=== PATIENT | male | born 1975 | race American Indian/Alaskan Native ===

== ENCOUNTER 2019-02-04 09:33 | Emergency (ER) | payer MEDICARE ==
[2019-02-04 09:49] VITALS: BP 117/73
--- NOTE | 2019-02-04 10:48 | Emergency Department Report ---
Chief Complaint: Medical Clearance Stated Complaint: LEVELS CHECKED/POSS DIABETIC Time Seen by Provider: 02/04/19 10:43 - HPI History of Present Illness: 44-year-old -[place] male with a history of paranoid schizophrenia comes in today stating he is here to get his Depakote levels checked. Patient states that he is followed by Frances ramirez. Patient reports he last took his Depakote which is 500 mg morning. Patient has missed 2 doses of Depakote. Patient denies any suicidal or homicidal ideations. Patient denies any hallucination. - Exam Vital Signs: Vital Signs 02/04/19 09:46 Temperature 97.9 F Pulse Rate 93 H Respiratory 18 Rate Blood Pressure 117/73 O2 Sat by Pulse 96 Oximetry Physical Exam: Patient is alert and oriented 3 patient does not appear intoxicated or sedated. Patient is playing on his cell phone MSE screening note: Focused history and physical exam performed. Due to findings the following was ordered: Patient discussed with doctor:: ELEUTERIO WHITAKER ED Disposition for MSE Disposition: MED SCREENING EXAM-LEFT Is pt being admited?: No Does the pt Need Aspirin: No Condition: Stable Referrals: [facility] [Provider Group] - 3-5 Days
== END 2019-02-04 11:08 | disposition left against medical advice (07) ==
LOC: ED 09:33
DX: F20.0 Paranoid schizophrenia (principal); Z88.0 Allergy status to penicillin; Z88.2 Allergy status to sulfonamides
CPT/HCPCS: 82962; 99282

== ENCOUNTER 2019-05-19 07:44 | Emergency (ER) | payer MEDICARE ==
[2019-05-19 07:50] VITALS: BP 134/80
--- NOTE | 2019-05-19 10:59 | Emergency Department Report ---
Chief Complaint: Headache Stated Complaint: DIZZY,NOSEBLEEDS Time Seen by Provider: 05/19/19 10:19 - HPI History of Present Illness: This is a 44-year-old male who presents to the ED complaining of headache and dizziness 1-1/2 years. Patient states that he is history of headache and sinus problems for the past 2 years. Patient states that he has intermittent headaches. Patient states that he is not having a evaluated because he was scared. Patient denies any trauma or injuries to the head. Patient denies any neck pain, fever, chills, nausea vomiting chest pain blurry vision - ROS Review of Systems: As noted in HPI. - Exam Vital Signs: Vital Signs 05/19/19 07:49 Temperature 97.4 F L Pulse Rate 82 Respiratory 18 Rate Blood Pressure 134/80 O2 Sat by Pulse 99 Oximetry Physical Exam: She is alert and oriented 3 . Ambulatory without any problems. Patient had no neurological deficit., Head was nontraumatic, my serious sinuses intact Nontender MSE screening note: Focused history and physical exam performed. Due to findings the following was ordered: ED Medical Decision Making - Medical Decision Making 44-year-old male presents to the ED for chronic headache. PATIENT DENIES ANY OTHER PROBLEMS. PATIENT DOES NOT HAVE A MEDICAL EMERGENCY AT THIS TIME. PATIENT WAS DISCHARGED AND SENT TO DR. BURRELL USE OFFICE. DISCUSSED THE PATIENT ALSO TO FOLLOW UP WITH NEUROLOGIST KYM. ED Disposition for MSE Clinical Impression: Headache, Chronic headache Disposition: Z-07 MED SCREENING EXAM-LEFT Is pt being admited?: No Does the pt Need Aspirin: No Condition: Stable Instructions: Allergic Rhinitis (ED), Tension Headache (ED) Additional Instructions: Make sure to follow up with the primary care physician as discussed. Take all your medications as you've been prescribed by your doctor. If you have any worsening symptoms or develop new symptoms please return to ED immediately. Referrals: LEYDI ROLDAN MD [Staff Physician] - 3-5 Days [facility] [Provider Group] - 3-5 Days Forms: Work/School Release Form(ED) Time of Disposition: 10:58
== END 2019-05-19 11:09 | disposition left against medical advice (07) ==
LOC: ED 07:44
DX: R51 Headache (principal); R42 Dizziness and giddiness
CPT/HCPCS: 99282

== ENCOUNTER 2020-04-07 17:31 | Emergency (ER) | payer MEDICARE ==
[2020-04-07 18:16] VITALS: BP 148/86
--- NOTE | 2020-04-07 18:17 | Event Note ---
ED Screening Note Date of service: 04/07/20 Time: 18:16 ED Screening Note: Patient complains of feeling faint x2 weeks and also wanting blood sugar level and Depakote level checked Denies headache, shortness of breath, or chest pain This initial assessment/diagnostic orders/clinical plan/treatment(s) is/are subject to change based on patients health status, clinical progression and re- assessment by fellow clinical providers in the ED. Further treatment and workup at subsequent clinical providers discretion. Patient/guardian urged not to elope from the ED as their condition may be serious if not clinically assessed and managed. Initial orders include: labs ekg
[2020-04-07 19:28] LABS: Basophils % (Auto) 0.5 % (0.0-1.8); Eosinophils # (Auto) 0.1 K/mm3 (0.0-0.4); Eosinophils % (Auto) 1.2 % (0.0-4.3); Hemoglobin 15.4 gm/dl (11.8-15.2); Lymphocytes % (Auto) 45.1 % (13.4-35.0); Mean Corpuscular HGB Conc 34 % (32-34); Mean Corpuscular Volume 81 fl (84-94); Monocytes % (Auto) 11.9 % (0.0-7.3); Platelet Count 232 K/mm3 (140-440); Red Blood Count 5.58 M/mm3 (3.65-5.03); Red Cell Distribution Width 16.7 % (13.2-15.2)
[2020-04-07 19:53] LABS: Alanine Aminotransferase 8 units/L (7-56); Albumin 4.5 g/dL (3.9-5); BUN/Creatinine Ratio 11; Blood Urea Nitrogen 9 mg/dL (9-20); Calcium 9.6 mg/dL (8.4-10.2); Hemolysis Index 10
--- NOTE | 2020-04-08 01:48 | Emergency Department Report ---
ED General Adult HPI - General Chief complaint: Medical Clearance Stated complaint: PAIN HANDS/FEET/SUGAR LEVEL Time Seen by Provider: 04/07/20 18:16 Source: patient Mode of arrival: Ambulatory Limitations: No Limitations - History of Present Illness Initial comments: Patient is a 45-year-old -Bangladeshi male with a history of paranoid schizophrenia and chronic eczema who presents to the ED with complaint of acute onset persistent intermittent bilateral ankle and hand pain with itchy erythematous dry scaly rashes on the hands and ankles. Patient states that the pain is worse with ambulation or at rest. Patient denies dizziness, fever, chills, nausea, vomiting, traumatic injury, heavy lifting, chest pain or shortness of breath, change in vision, abdominal pain, back pain or numbness and tingling of upper and lower extremities bilaterally. MD Complaint: Bilateral ankle and hand pain; itchy irritated rashes -: Gradual, month(s) (2) Location: upper extremity (Bilateral hands), lower extremity (bilateral ankles) Radiation: non-radiation Severity scale (0 -10): 7 Quality: burning, aching, sharp Consistency: constant Improves with: none Worsens with: none Associated Symptoms: denies other symptoms, rash (Irritated itchy burning painful rashes on the hands and the ankle). denies: confusion, chest pain, cough, diaphoresis, headaches, loss of appetite, malaise, nausea/vomiting, seizure, shortness of breath, syncope, weakness, other Treatments Prior to Arrival: none - Related Data Previous Rx's Medication Instructions Recorded Last Taken Type Ibuprofen [Motrin] 600 mg PO Q8H PRN #30 tablet 04/08/20 Unknown Rx Triamcinolone Acetonide 1 applic TP BID #1 tube 04/08/20 Unknown Rx [Triamcinolone Acetonide Oint 0.5%] predniSONE [Deltasone] 40 mg PO QDAY #10 tab 04/08/20 Unknown Rx Allergies Allergy/AdvReac Type Severity Reaction Status Date / Time Penicillins Allergy Anaphylaxis Verified 05/19/19 07:47 sulfabenzamide Allergy Anaphylaxis Verified 05/19/19 07:47 ED Review of Systems ROS: Stated complaint: PAIN HANDS/FEET/SUGAR LEVEL Other details as noted in HPI Constitutional: denies: chills, fever Eyes: denies: eye pain, eye discharge, vision change ENT: denies: ear pain, throat pain Respiratory: denies: cough, shortness of breath, wheezing Cardiovascular: denies: chest pain, palpitations Endocrine: no symptoms reported Gastrointestinal: denies: abdominal pain, nausea, diarrhea Genitourinary: denies: urgency, dysuria Musculoskeletal: arthralgia (Bilateral hands and ankles), other (Itchy erythematous dry rashes on ankles and ahnds). denies: back pain, joint swelling Skin: rash (Mildy erythematous itchy rashes on ankles and hands), change in color, pruritus. denies: lesions Neurological: denies: headache, weakness, paresthesias Psychiatric: denies: anxiety, depression Hematological/Lymphatic: denies: easy bleeding, easy bruising ED Past Medical Hx - Past Medical History Previous Medical History?: Yes Hx Psychiatric Treatment: Yes (paranoid schizophrenia) Additional medical history: PVD. ezcema - Surgical History Past Surgical History?: Yes Additional Surgical History: stents in legs - Social History Smoking Status: Current Every Day Smoker Substance Use Type: None - Medications Home Medications: Home Medications Medication Instructions Recorded Confirmed Last Taken Type Ibuprofen [Motrin] 600 mg PO Q8H PRN #30 tablet 04/08/20 Unknown Rx Triamcinolone Acetonide 1 applic TP BID #1 tube 04/08/20 Unknown Rx [Triamcinolone Acetonide Oint 0.5%] predniSONE [Deltasone] 40 mg PO QDAY #10 tab 04/08/20 Unknown Rx ED Physical Exam - General Limitations: No Limitations General appearance: alert, in no apparent distress - Head Head exam: Present: atraumatic, normocephalic, normal inspection - Eye Eye exam: Present: normal appearance, PERRL, EOMI Pupils: Present: normal accommodation - ENT ENT exam: Present: normal exam, normal orophraynx, mucous membranes moist, TM's normal bilaterally, normal external ear exam - Neck Neck exam: Present: normal inspection, full ROM - Respiratory Respiratory exam: Present: normal lung sounds bilaterally. Absent: respiratory distress, wheezes, rales, rhonchi, stridor, chest wall tenderness, accessory mus mitzi use - Cardiovascular Cardiovascular Exam: Present: regular rate, normal rhythm, normal heart sounds. Absent: systolic murmur, diastolic murmur, rubs, gallop - GI/Abdominal GI/Abdominal exam: Present: soft, normal bowel sounds. Absent: tenderness, guarding, rebound, hyperactive bowel sounds, hypoactive bowel sounds, organomegaly, mass - Extremities Exam Extremities exam: Present: normal inspection, full ROM, tenderness (Palpable bilateral ankle and hand joint tenderness), normal capillary refill. Absent: joint swelling, calf tenderness - Back Exam Back exam: Present: normal inspection, full ROM. Absent: tenderness, CVA tenderness (R), CVA tenderness (L), muscle spasm, paraspinal tenderness, vertebral tenderness - Neurological Exam Neurological exam: Present: alert, oriented X3, CN II-XII intact, normal gait, reflexes normal - Psychiatric Psychiatric exam: Present: normal affect, normal mood - Skin Skin exam: Present: warm, dry, intact, normal color, rash (Mildly erythematous dry irritated rashes on ankles and hands bilaterally) ED Course Vital Signs 04/07/20 18:14 Temperature 98.5 F Pulse Rate 89 Respiratory 16 Rate Blood Pressure 148/86 [Right] O2 Sat by Pulse 100 Oximetry ED Medical Decision Making - Lab Data Result diagrams: 04/07/20 18:46 04/07/20 18:46 - Medical Decision Making This is a 45-year-old -Bangl[place] male with a history of bipolar type I disorder and chronic eczema who presents to the ED with complaint of acute onset persistent intermittent bilateral ankle and hand pain with itchy erythematous dry scaly rashes on the hands and ankles. Patient states that the pain is worse with ambulation or at rest. In the ED, patient is alert and oriented x3 and is not in distress. Lab test results were reviewed and are all nonactionable. Patient was treated for pain in the ED and was discharged home on medications and advised to follow-up with his primary care physician in 7 to 10 days for reevaluation. Patient was advised to return to the ED immediately if symptoms get worse. - Differential Diagnosis Tendonitis; Osteoarthritis; Muscle strain; muscle spasm Critical care attestation.: If time is entered above; I have spent that time in minutes in the direct care of this critically ill patient, excluding procedure time. ED Disposition Clinical Impression: Tendinitis of both ankles, Chronic eczema Muscle strain of hand Qualifiers: Encounter type: initial encounter Laterality: unspecified laterality Qualified Code(s): S66.919A - Strain of unspecified muscle, fascia and tendon at wrist and hand level, unspecified hand, initial encounter Disposition: TO HOME OR SELFCARE Is pt being admited?: No Does the pt Need Aspirin: No Condition: Stable Instructions: Eczema, Muscle Strain, Ymrr-[id number]-Lweg, Posterior Tibial Tendinitis Rehab[facility] Additional Instructions: Take medications with food, drink plenty of fluids and follow up with your Primary care Physician in 7-10 days for reevaluation. Return to the ED immediately if symptoms get worse Prescriptions: predniSONE [Deltasone] 40 mg PO QDAY #10 tab Ibuprofen [Motrin] 600 mg PO Q8H PRN #30 tablet PRN Reason: Pain Triamcinolone Acetonide [Triamcinolone Acetonide Oint 0.5%] 1 applic TP BID #1 tube Referrals: [facility] [Provider Group] - 3-5 Days Time of Disposition: 01:56 Print Language: DOMINICAN
[2020-04-08] MEDS ORDERED: IBUPROFEN 600 MG TAB PO ONE (02:03)
[2020-04-08] MEDS ORDERED: predniSONE 20 MG TAB PO ONE (02:03)
[2020-04-08] MEDS ORDERED: ACETAMINOPHEN 500 MG TAB PO ONE (02:03)
== END 2020-04-08 02:13 | disposition home or self-care (01) ==
LOC: ED 17:31
DX: S66.919A Strain of unspecified muscle, fascia and tendon at wrist and hand level, unspecified hand, initial encounter (principal); M77.52 Other enthesopathy of left foot and ankle; M77.51 Other enthesopathy of right foot and ankle; L30.9 Dermatitis, unspecified; F20.0 Paranoid schizophrenia; F17.200 Nicotine dependence, unspecified, uncomplicated; Z98.890 Other specified postprocedural states; Z79.1 Long term (current) use of non-steroidal anti-inflammatories (NSAID); Z79.899 Other long term (current) drug therapy; Z88.0 Allergy status to penicillin; Z88.8 Allergy status to other drugs, medicaments and biological substances; X58.XXXA Exposure to other specified factors, initial encounter; Y93.89 Activity, other specified; Y92.89 Other specified places as the place of occurrence of the external cause; Y99.8 Other external cause status
CPT/HCPCS: 36415; 80053; 84484; 85025

== ENCOUNTER 2020-08-19 14:41 | Emergency (ER) | payer MEDICARE ==
--- NOTE | 2020-08-19 15:47 | Emergency Department Report ---
ED General Adult HPI - General Chief complaint: Skin Rash Stated complaint: RASH/ALL OVER Time Seen by Provider: 08/19/20 15:41 Source: patient Mode of arrival: Ambulatory Limitations: No Limitations - History of Present Illness Initial comments: 45 y/o male pt w/ hx of schizophrenia and eczema presents emergency department with complaints of diffuse pruritic rash for 1 month. Patient states he was released from [facility] last week, where he did not receive any of his steroids or topical medications. He does not currently have plans to see a partition setter. States current symptoms are consistent with prior eczema flares. Denies fever, chills, chest pain, shortness of breath, vomiting, diarrhea, abnormal bleeding/bruising, syncope, neck stiffness, suicidal/homicidal ideations. Denies all other complaints at this time. - Related Data Previous Rx's Medication Instructions Recorded Last Taken Type Ibuprofen [Motrin] 600 mg PO Q8H PRN #30 tablet 04/08/20 Unknown Rx Triamcinolone Acetonide 1 applic TP BID #1 tube 04/08/20 Unknown Rx [Triamcinolone Acetonide Oint 0.5%] predniSONE [Deltasone] 40 mg PO QDAY #10 tab 04/08/20 Unknown Rx Crisaborole [Eucrisa] 60 gm TP BID #1 tube 08/19/20 Unknown Rx predniSONE [Deltasone] 20 mg PO QDAY 10 Days tab 08/19/20 Unknown Rx Allergies Allergy/AdvReac Type Severity Reaction Status Date / Time Penicillins Allergy Anaphylaxis Verified 05/19/19 07:47 sulfabenzamide Allergy Anaphylaxis Verified 05/19/19 07:47 ED Review of Systems ROS: Stated complaint: RASH/ALL OVER Other details as noted in HPI Other: GENERAL: Negative for fever, chills, weight change, anorexia, fatigue. ENT: Negative for ear pain, difficulty hearing, sore throat, nasal congestion, epistaxis. CARDIOVASCULAR: Negative for chest pain, palpitations, lower extremity swelling. PULMONARY: Negative for cough, dyspnea, wheezing, orthopnea, cyanosis. GASTROINTESTINAL: Negative for abdominal pain, nausea, vomiting, diarrhea, constipation. MUSCULOSKELETAL: Negative for joint pain, joint swelling, myalgias, back pain, neck pain. NEUROLOGICAL: Negative for headache, seizure, syncope, paresthesias, weakness. INTEGUMENTARY: Positive for rash. HEMATOLOGICAL: Negative for hemoptysis, hematemesis, hematochezia, hematuria. PSYCHIATRIC: Negative for hallucinations, suicidal ideation, homicidal ideation, anxiety, depression. ED Past Medical Hx - Past Medical History Previous Medical History?: Yes Hx Psychiatric Treatment: Yes (paranoid schizophrenia) Additional medical history: PVD. ezcema - Surgical History Past Surgical History?: Yes Additional Surgical History: stents in legs - Social History Smoking Status: Current Every Day Smoker Substance Use Type: None - Medications Home Medications: Home Medications Medication Instructions Recorded Confirmed Last Taken Type Ibuprofen [Motrin] 600 mg PO Q8H PRN #30 tablet 04/08/20 Unknown Rx Triamcinolone Acetonide 1 applic TP BID #1 tube 04/08/20 Unknown Rx [Triamcinolone Acetonide Oint 0.5%] predniSONE [Deltasone] 40 mg PO QDAY #10 tab 04/08/20 Unknown Rx Crisaborole [Eucrisa] 60 gm TP BID #1 tube 08/19/20 Unknown Rx predniSONE [Deltasone] 20 mg PO QDAY 10 Days tab 08/19/20 Unknown Rx ED Physical Exam - General Limitations: No Limitations - Other Other exam information: General: Awake, appropriately interactive, no acute distress. Neck: Supple. Full range of motion intact. Cardiovascular: Normal peripheral perfusion. Pulmonary: No respiratory distress. Patient is speaking normally without use of accessory muscles. Skin: Dry scaly pruritic rash throughout the trunk and extremities. No evidence of secondary bacterial infection. Neurological: No facial asymmetry. Speech is clear. Follows commands. Patient is alert and oriented. Musculoskeletal: Moves all four extremities spontaneously with normal range of motion. Psych: Cooperative. Appropriate mood and affect. ED Course Vital Signs 08/19/20 15:34 Temperature 98.7 F Pulse Rate 89 Respiratory 20 Rate Blood Pressure 111/75 O2 Sat by Pulse 98 Oximetry ED Medical Decision Making - Medical Decision Making Differential diagnosis including but not limited to: eczema, psoriasis, allergic reaction, tinea corporis, cellulitis, Smith-Jacek syndrome, toxic epidermal necrolysis Patient with history of eczema presents to the emergency department with complaints of a diffuse pruritic rash, consistent with prior eczema flareups. The patient is alert and well appearing. There are no petichiae or purpura, no mucous membrane lesions, and no bullae. No evidence of secondary bacterial infection. The patient is without findings concerning for worrisome systemic illness requiring further treatment, additional testing, admission, or specialist consultation at this time. History and exam findings suggestive of eczema. Patient will be discharged home with steroids and topical medications. Additional testing is not indicated at this time, but should be considered if symptoms worsen or recur. Discussed findings, presumptive diagnosis, need for follow-up and specific signs/symptoms that should prompt immediate return to the emergency department. Instructions were explained in detail to the patient in addition to giving written discharge information. Patient expressed understanding and was given the opportunity to ask questions, all of which were satisfactorily answered prior to discharge home. Critical care attestation.: If time is entered above; I have spent that time in minutes in the direct care of this critically ill patient, excluding procedure time. ED Disposition Clinical Impression: Rash and nonspecific skin eruption, History of eczema Disposition: TO HOME OR SELFCARE Is pt being admited?: No Does the pt Need Aspirin: No Condition: Stable Instructions: Rash, Adult, [id number] Additional Instructions: Take Prednisone with food as directed. Use Eucrisa twice daily as directed. Continue applying Vaseline daily. Keep skin well hydrated. Follow-up with primary care provider this week. Call tomorrow to schedule appointment. Follow-up with your partition setter as soon as possible. Call tomorrow to schedule appointment. Return to the emergency department immediately for new or worsening symptoms. Prescriptions: predniSONE [Deltasone] 20 mg PO QDAY 10 Days tab Crisaborole [Eucrisa] 60 gm TP BID #1 tube Referrals: LUH BURRELL MD [Staff Physician] - 3-5 Days PRAVEENA DUNLAP MD [Staff Physician] - 3-5 Days Time of Disposition: 15:54
[2020-08-19 15:49] VITALS: BP 111/75
== END 2020-08-19 16:54 | disposition home or self-care (01) ==
LOC: ED 14:41
DX: R21 Rash and other nonspecific skin eruption (principal); L30.9 Dermatitis, unspecified; F20.0 Paranoid schizophrenia; F17.200 Nicotine dependence, unspecified, uncomplicated; Z98.890 Other specified postprocedural states; Z79.1 Long term (current) use of non-steroidal anti-inflammatories (NSAID); Z79.899 Other long term (current) drug therapy; Z88.0 Allergy status to penicillin; Z88.8 Allergy status to other drugs, medicaments and biological substances
CPT/HCPCS: 99282

== ENCOUNTER 2020-10-02 16:15 | Inpatient (IN) | payer MEDICARE ==
[2020-10-02] MEDS ORDERED: MELATONIN 5 MG TAB PO PRN (21:51)
[2020-10-03] MEDS: traZODone 50 MG TAB PO SCH ×2 (03:45→21:42)
[2020-10-03] MEDS ORDERED: DIVALPROEX DR 125 MG TAB PO SCH ×2 (10:00→22:00)
[2020-10-03] MEDS: TRIAMCINOLONE 0.5% CREAM 15 GM TP SCH ×2 (10:04→21:42)
--- NOTE | 2020-10-03 11:02 | History and Physical Report ---
GP History & Physical - History of Present Illness Date of admission: 10/02/20 Date of Examination: 10/03/20 Reason for Admission: Danger to self, Failure of Outpatient Treatment, Severe anxiety/depression History of Present Illness: Donnie Rachel is a 45y/o male patient whom I first evaluated in the ER and at that time had cleared the patient. When the clinical academic allergist went to discharge the patient and discussed the safety plan with the patient he stated that his suicidal thoughts had returned. At that time time I informed the clinical academic allergist that I would be changing the patient's disposition to inpatient. During my evaluation of the patient today he is in his room with the linen over his head. I pull it down to see him. He is smiling but says he feels "withdrawn." I asked why he wasn't in the dayroom. He says "I did socialize a little bit." He then says "I'm waiting on lunch." He endorses suicidal thoughts and states he had plans to use a good. He also verbalizes hearing voices telling him, "you haven't showed me anything." PAST PSYCHIATRIC HISTORY Diagnoses: schizoaffective, schizophrenia Suicide attempts or Self-harm behavior: Denies Prior psychiatric hospitalizations: Denies Substance Abuse history: THC Previous psychiatric medications tried: depakote, remeron Outpatient treatment: Denies SOCIAL HISTORY Marital Status: Single Living Arrangements: Homeless Employment Status: Unemployed Access to guns/weapons: Denies Education: high school History of Abuse: Denies Legal History: None reported REVIEW OF SYSTEMS Constitutional: Negative for weight loss ENT: Negative for stridor Respiratory: Negative for cough or hemoptysis All other systems reviewed and are negative MENTAL STATUS EXAMINATION General Appearance and Behavior: Age appropriate, dressed appropriately, calm and cooperative Cooperation: Participating Psychomotor Behavior: psychomotor normal Mood: withdrawn Affect and affective range: Congruent with stated mood Thought Process: goal directed Thought Content: hallucinations Speech: Normal volume, Regular rate and rhythm, Intellectual Functioning: Average Suicidal Ideation: yes, with plan Homicidal Ideation: Denies Hallucinations: auditory Delusions: None elicited Impulse Control: Unimpaired Insight and Judgment: Limited insight and judgment, Memory: Limited Attention: Undivided Orientation: Alert, oriented Assessment and Plan (1) MDD Treatment Plan Patient admitted for inpatient psychiatric evaluation, medication adjustment and close monitoring The patient's behavior, mood, sleep and appetite will be closely monitored. Patient enrolled in individual and group therapeutic sessions and encouraged to attend. Patient provided with a safe and structured environment. Patient's physical health needs will be addressed by the Hospitalist. Hospitalist Consulted Labs including CBC, CMP, Lipid profile and Hemoglobin A1C levels ordered for baseline reference Social Assessment will be completed and the Helper Metal Hanging will work with patient and family to ensure a suitable and safe disposition Medication adjustment will be made as clinically indicated Increased Depakote DR 250mg po BID Start Abilify 5mg po daily Usual Wellness Evangelical/Preservation: - Start Trazodone 50 mg po QHS & 50 mg po QHS PRN between 10 PM & 2 AM for insomnia - Start Melatonin 5 mg po QHS to promote circadian rhythm - Start [place]-3 for brain health, reduce impulsivity, and as adjunctive treatment for mood disorder, continue upon discharge given overall benefits. - Start B1 prophylaxis with 200 mg po for 5 days The patient agreed on the treatment plan, understood the risk, benefit, alternative treatment, potential consequence of no treatment, and gave informed consent. Estimated days: 7 Post hospital care: primary care provider, psychiatric provider Legal Status: Voluntary Reaction to Hospitalization: Accepting Medications and Allergies Allergies Allergy/AdvReac Type Severity Reaction Status Date / Time Penicillins Allergy Anaphylaxis Verified 10/02/20 00:08 sulfabenzamide Allergy Anaphylaxis Verified 10/02/20 00:08 Home Medications Medication Instructions Recorded Confirmed Last Taken Type Ibuprofen [Motrin] 600 mg PO Q8H PRN #30 tablet 04/08/20 10/03/20 Unknown Rx Triamcinolone Acetonide 1 applic TP BID #1 tube 04/08/20 10/03/20 Unknown Rx [Triamcinolone Acetonide Oint 0.5%] predniSONE [Deltasone] 40 mg PO QDAY #10 tab 04/08/20 10/03/20 Unknown Rx Crisaborole [Eucrisa] 60 gm TP BID #1 tube 08/19/20 10/03/20 Unknown Rx predniSONE [Deltasone] 20 mg PO QDAY 10 Days tab 08/19/20 10/03/[address] [DepaKOTE DR] 125 mg PO BID #60 tablet 10/02/20 10/03/20 Unknown Rx Mirtazapine [Remeron] 15 mg PO QHS #30 tablet 10/02/20 10/03/20 Unknown Rx Active Meds: Active Medications Divalproex Sodium (Divalproex Dr 125 Mg Tab) 125 mg PO BID [facility] Last Admin: 10/03/20 10:04 Dose: 125 mg Documented by: Melatonin (Melatonin 5 Mg Tab) 5 mg PO QHS PRN PRN Reason: Sleep Mirtazapine (Mirtazapine 15 Mg Tab) 15 mg PO QHS [facility] Trazodone HCl (Trazodone 50 Mg Tab) 50 mg PO QHS [facility] Last Admin: 10/03/20 03:45 Dose: Not Given Documented by: Triamcinolone Acetonide (Triamcinolone 0.5% Cream 15 Gm) 1 applic TP BID [facility] Last Admin: 10/03/20 10:04 Dose: 1 applic Documented by: Results - Results Labs/Vitals: Laboratory Last Values POC Glucose 94 mg/dL (70-105) 10/02/20 23:29 Last Vital Signs Temp 97.8 F 10/03/20 08:02 Pulse 69 10/03/20 08:02 Resp 18 10/03/20 08:02 BP 120/71 10/03/20 08:02 Pulse Ox 97 10/03/20 08:02 Physical Examination - Constitutional Vitals: Vital Signs Temp Pulse Resp BP Pulse Ox 97.8 F 69 18 120/71 97 10/03/20 08:02 10/03/20 08:02 10/03/20 08:02 10/03/20 08:02 10/03/20 08:02 Temperature -Last 24 Hours Temperature 97.8 F Temperature 98.4 F Mental Status Exam - Vital signs Last Vital Signs Temp 97.8 F 10/03/20 08:02 Pulse 69 10/03/20 08:02 Resp 18 10/03/20 08:02 BP 120/71 10/03/20 08:02 Pulse Ox 97 10/03/20 08:02 Physician Certification - Certification Statement Physician Certification Statement: This is an acknowledgement statement that DONNIE RACHEL is a 45 year old M who requires inpatient psychiatric admission for treatment which could reasonably be expected to improve the patient's condition for Estimated period of time patient will need to remain in the hospital: [ ] Plan for post-hospital care: [ ]
[2020-10-03] MEDS: ARIPiprazole 5 MG TAB PO SCH (11:55)
--- NOTE | 2020-10-03 11:57 | Consultation ---
History of Present Illness - Reason for Consult Consult date: 10/03/20 Medical management Requesting physician: DAYRON WOLFE - History of Present Illness 45 YO Male with PVD S/P Stent placement, Eczema, Paranoid Schizophrenia admitted to [facility] for psychiatric stabilization. Consult placed by Dr. Wolfe for medical management. Patient seen and evaluated in the recreation room. Patient resting comfortably. Patient denies fever, chills, chest pain, pal pitation, productive cough, skin rash, recent ill contacts, known exposure to COVID-19. No reported nursing events. Past History Past Medical History: PVD, other (See HPI) Past Surgical History: Other (Stent placement) Social history: single. denies: smoking, alcohol abuse Family history: hypertension Medications and Allergies Allergies Allergy/AdvReac Type Severity Reaction Status Date / Time Penicillins Allergy Anaphylaxis Verified 10/02/20 00:08 sulfabenzamide Allergy Anaphylaxis Verified 10/02/20 00:08 Home Medications Medication Instructions Recorded Confirmed Last Taken Type Ibuprofen [Motrin] 600 mg PO Q8H PRN #30 tablet 04/08/20 10/03/20 Unknown Rx Triamcinolone Acetonide 1 applic TP BID #1 tube 04/08/20 10/03/20 Unknown Rx [Triamcinolone Acetonide Oint 0.5%] predniSONE [Deltasone] 40 mg PO QDAY #10 tab 04/08/20 10/03/20 Unknown Rx Crisaborole [Eucrisa] 60 gm TP BID #1 tube 08/19/20 10/03/20 Unknown Rx predniSONE [Deltasone] 20 mg PO QDAY 10 Days tab 08/19/20 10/03/[address] [DepaKOTE DR] 125 mg PO BID #60 tablet 10/02/20 10/03/20 Unknown Rx Mirtazapine [Remeron] 15 mg PO QHS #30 tablet 10/02/20 10/03/20 Unknown Rx Active Meds: Active Medications Aripiprazole (Aripiprazole 5 Mg Tab) 5 mg PO QDAY [facility] Last Admin: 10/03/20 11:55 Dose: 5 mg Documented by: Divalproex Sodium (Divalproex Dr 250 Mg Tab) 250 mg PO BID [facility] Melatonin (Melatonin 5 Mg Tab) 5 mg PO QHS PRN PRN Reason: Sleep Mirtazapine (Mirtazapine 15 Mg Tab) 15 mg PO QHS [facility] Trazodone HCl (Trazodone 50 Mg Tab) 50 mg PO QHS [facility] Last Admin: 10/03/20 03:45 Dose: Not Given Documented by: Triamcinolone Acetonide (Triamcinolone 0.5% Cream 15 Gm) 1 applic TP BID [facility] Last Admin: 10/03/20 10:04 Dose: 1 applic Documented by: Review of Systems Constitutional: no weight loss, no weight gain, no fever, no chills Ears, nose, mouth and throat: no ear pain, no ear discharge, no tinnitis Cardiovascular: no chest pain, no orthopnea, no rapid/irregular heart beat, no edema, no syncope Respiratory: no cough, no cough with sputum, no excessive sputum, no shortness of breath, no dyspnea on exertion Gastrointestinal: no nausea, no vomiting, no diarrhea, no change in bowel habits Genitourinary Male: no hematuria, no flank pain, no discharge, no urinary frequency, no urinary hesitancy Rectal: no pain, no incontinence, no bleeding Musculoskeletal: no neck stiffness, no shooting arm pain, no arm numbness/tingling Integumentary: no rash, no pruritis, no redness, no sores, no wounds Neurological: no head injury, no transient paralysis, no parathesias, no numbness, no tingling, no seizures Psychiatric: depression, hopelessness Endocrine: no cold intolerance, no polydipsia, no polyuria, no excessive sweating Hematologic/Lymphatic: no easy bruising, no easy bleeding Allergic/Immunologic: no urticaria, no wheezing Exam - Constitutional Vitals: Temp Pulse Resp BP Pulse Ox 97.8 F 69 18 120/71 97 10/03/20 08:02 10/03/20 08:02 10/03/20 08:02 10/03/20 08:02 10/03/20 08:02 General appearance: Present: no acute distress, well-nourished - EENT Eyes: Present: PERRL ENT: hearing intact, clear oral mucosa - Neck Neck: Present: supple, normal ROM - Respiratory Respiratory effort: normal Respiratory: bilateral: CTA - Cardiovascular Heart Sounds: Present: S1 & S2. Absent: rub, click - Extremities Extremities: pulses symmetrical, No edema Peripheral Pulses: within normal limits - Abdominal General gastrointestinal: Present: soft, non-tender, non-distended, normal bowel sounds Male genitourinary: Present: normal - Integumentary Integumentary: Present: clear, warm, dry - Musculoskeletal Musculoskeletal: gait normal, strength equal bilaterally - Psychiatric Psychiatric: appropriate mood/affect, intact judgment & insight - Neurologic Neurologic: CNII-XII intact, moves all extremities Assessment and Plan - Patient Problems (1) Paranoid schizophrenia Current Visit: Yes Status: Acute Plan to address problem: Continue medical management. (2) Peripheral vascular disease Current Visit: Yes Status: Acute Plan to address problem: Palpable pulses, continue medical management. (3) Eczema Current Visit: Yes Status: Acute Plan to address problem: Continues topical therapy
[2020-10-03] MEDS ORDERED: IBUPROFEN 600 MG TAB PO PRN (13:00)
[2020-10-03] MEDS: DIVALPROEX DR 250 MG TAB PO SCH (21:41)
[2020-10-03] MEDS: MIRTAZAPINE 15 MG TAB PO SCH (21:42)
[2020-10-03] MEDS ORDERED: CRISABOROLE TP SCH (22:00)
[2020-10-03] MEDS ORDERED: TRIAMCINOLONE ACETONIDE TP SCH (22:00)
[2020-10-04 06:19] LABS: Hematocrit 37.6 % (35.5-45.6); Hemoglobin 13.2 gm/dl (11.8-15.2); Mean Corpuscular HGB Conc 35 % (32-34); Mean Corpuscular Volume 82 fl (84-94); Platelet Count 180 K/mm3 (140-440); Red Blood Count 4.61 M/mm3 (3.65-5.03)
[2020-10-04 06:42] LABS: Alanine Aminotransferase 6 units/L (7-56); Albumin 3.6 g/dL (3.9-5); BUN/Creatinine Ratio 10; Blood Urea Nitrogen 9 mg/dL (9-20); Calcium 9.1 mg/dL (8.4-10.2); Chol/HDL Ratio 5.72 %; HDL Cholesterol 33 mg/dL (40-59); Hemolysis Index 5; LDL Cholesterol,Direct 146 mg/dL (50-130)
[2020-10-04 07:43] LABS: Total Cells Counted 100
[2020-10-04 07:44] LABS: Platelet Estimate Consistent w Auto; RBC Morphology Normal
[2020-10-04] MEDS: DIVALPROEX DR 250 MG TAB PO SCH (09:12)
[2020-10-04] MEDS: ARIPiprazole 5 MG TAB PO SCH (09:12)
[2020-10-04] MEDS: TRIAMCINOLONE 0.5% CREAM 15 GM TP SCH ×2 (09:13→21:36)
--- NOTE | 2020-10-04 09:32 | Progress Note ---
Subjective Date of service: 10/04/20 Principal diagnosis: SI, depression Subjective Comment: The patient was seen today, he says he's doing okay. He still endorses suicidal thoughts, but states "I'm not hearing the voices though." The patient says he slept good and his appetite has been good. REVIEW OF SYSTEMS Constitutional: Negative for weight loss ENT: Negative for stridor Respiratory: Negative for cough or hemoptysis All other systems reviewed and are negative MENTAL STATUS EXAMINATION General Appearance and Behavior: Age appropriate, dressed appropriately, calm and cooperative Cooperation: Participating Psychomotor Behavior: psychomotor normal Mood: okay Affect and affective range: Congruent with stated mood Thought Process: goal directed Thought Content: SI Speech: Normal volume, Regular rate and rhythm, Intellectual Functioning: Average Suicidal Ideation: yes Homicidal Ideation: Denies Hallucinations: auditory Delusions: None elicited Impulse Control: Unimpaired Insight and Judgment: Limited insight and judgment, Memory: Limited Attention: Undivided Orientation: Alert, oriented Assessment and Plan (1) MDD Treatment Plan Patient admitted for inpatient psychiatric evaluation, medication adjustment and close monitoring The patient's behavior, mood, sleep and appetite will be closely monitored. Patient enrolled in individual and group therapeutic sessions and encouraged to attend. Patient provided with a safe and structured environment. Patient's physical health needs will be addressed by the Hospitalist. Hospitalist Consulted Labs including CBC, CMP, Lipid profile and Hemoglobin A1C levels ordered for baseline reference [place] level 10/08 Social Assessment will be completed and the Solid Die Cutter will work with patient and family to ensure a suitable and safe disposition Medication adjustment will be made as clinically indicated Increased Depakote DR 500mg po BID Zoloft 25mg po daily Usual Wellness Amish/Preservation: - Start Trazodone 50 mg po QHS & 50 mg po QHS PRN between 10 PM & 2 AM for insomnia - Start Melatonin 5 mg po QHS to promote circadian rhythm - Start [place]-3 for brain health, reduce impulsivity, and as adjunctive treatment for mood disorder, continue upon discharge given overall benefits. - Start B1 prophylaxis with 200 mg po for 5 days The patient agreed on the treatment plan, understood the risk, benefit, alternative treatment, potential consequence of no treatment, and gave informed consent. Estimated days: 5 Post hospital care: primary care provider, psychiatric provider Medications and Allergies Allergies Allergy/AdvReac Type Severity Reaction Status Date / Time Penicillins Allergy Anaphylaxis Verified 10/02/20 00:08 sulfabenzamide Allergy Anaphylaxis Verified 10/02/20 00:08 Home Medications Medication Instructions Recorded Confirmed Last Taken Type Ibuprofen [Motrin] 600 mg PO Q8H PRN #30 tablet 04/08/20 10/03/20 Unknown Rx Triamcinolone Acetonide 1 applic TP BID #1 tube 04/08/20 10/03/20 Unknown Rx [Triamcinolone Acetonide Oint 0.5%] predniSONE [Deltasone] 40 mg PO QDAY #10 tab 04/08/20 10/03/20 Unknown Rx Crisaborole [Eucrisa] 60 gm TP BID #1 tube 08/19/20 10/03/20 Unknown Rx predniSONE [Deltasone] 20 mg PO QDAY 10 Days tab 08/19/20 10/03/[address] [DepaKOTE DR] 125 mg PO BID #60 tablet 10/02/20 10/03/20 Unknown Rx Mirtazapine [Remeron] 15 mg PO QHS #30 tablet 10/02/20 10/03/20 Unknown Rx Active Meds: Active Medications Aripiprazole (Aripiprazole 5 Mg Tab) 5 mg PO QDAY [facility] Last Admin: 10/04/20 09:12 Dose: 5 mg Documented by: Divalproex Sodium (Divalproex Dr 250 Mg Tab) 250 mg PO BID [facility] Last Admin: 10/04/20 09:12 Dose: 250 mg Documented by: Ibuprofen (Ibuprofen 600 Mg Tab) 600 mg PO Q8H PRN PRN Reason: PAIN Melatonin (Melatonin 5 Mg Tab) 5 mg PO QHS PRN PRN Reason: Sleep Mirtazapine (Mirtazapine 15 Mg Tab) 15 mg PO QHS [facility] Last Admin: 10/03/20 21:42 Dose: 15 mg Documented by: Miscellaneous Medication (Crisaborole [Eucrisa]) 60 gm TP BID [facility] Trazodone HCl (Trazodone 50 Mg Tab) 50 mg PO QHS [facility] Last Admin: 10/03/20 21:42 Dose: 50 mg Documented by: Triamcinolone Acetonide (Triamcinolone 0.5% Cream 15 Gm) 1 applic TP BID [facility] Last Admin: 10/04/20 09:13 Dose: 1 applic Documented by: Results - Results Labs/Vitals: Laboratory Last Values WBC 7.1 K/mm3 (4.5-11.0) 10/04/20 05:53 RBC 4.61 M/mm3 (3.65-5.03) 10/04/20 05:53 Hgb 13.2 gm/dl (11.8-15.2) 10/04/20 05:53 Hct 37.6 % (35.5-45.6) 10/04/20 05:53 MCV 82 fl (84-94) L 10/04/20 05:53 MCH 29 pg (28-32) 10/04/20 05:53 MCHC 35 % (32-34) H 10/04/20 05:53 RDW 16.0 % (13.2-15.2) H 10/04/20 05:53 Plt Count 180 K/mm3 (140-440) 10/04/20 05:53 [place] % (Auto) [employer] Thread Winder 10/04/20 05:53 Add Manual Diff Complete 10/04/20 05:53 Total Counted 100 10/04/20 05:53 Seg Neuts % (Manual) 44.0 % (40.0-70.0) 10/04/20 05:53 Lymphocytes % (Manual) 33.0 % (13.4-35.0) 10/04/20 05:53 Reactive Lymphs % (Man) 1.0 % 10/04/20 05:53 Monocytes % (Manual) 18.0 % (0.0-7.3) H 10/04/20 05:53 Eosinophils % (Manual) 4.0 % (0.0-4.3) 10/04/20 05:53 Nucleated RBC % Not Reportable 10/04/20 05:53 Seg Neutrophils # Man 3.1 K/mm3 (1.8-7.7) 10/04/20 05:53 Band Neutrophils # 0.0 K/mm3 10/04/20 05:53 Lymphocytes # (Manual) 2.3 K/mm3 (1.2-5.4) 10/04/20 05:53 Abs React Lymphs (Man) 0.1 K/mm3 10/04/20 05:53 Monocytes # (Manual) 1.3 K/mm3 (0.0-0.8) H 10/04/20 05:53 Eosinophils # (Manual) 0.3 K/mm3 (0.0-0.4) 10/04/20 05:53 Basophils # (Manual) 0.0 K/mm3 (0.0-0.1) 10/04/20 05:53 Metamyelocytes # 0.0 K/mm3 10/04/20 05:53 Myelocytes # 0.0 K/mm3 10/04/20 05:53 Promyelocytes # 0.0 K/mm3 10/04/20 05:53 Blast Cells # 0.0 K/mm3 10/04/20 05:53 WBC Morphology Not Reportable 10/04/20 05:53 Hypersegmented Neuts Not Reportable 10/04/20 05:53 Hyposegmented Neuts Not Reportable 10/04/20 05:53 Hypogranular Neuts Not Reportable 10/04/20 05:53 Smudge Cells Not Reportable 10/04/20 05:53 Toxic Granulation Not Reportable 10/04/20 05:53 Toxic Vacuolation Not Reportable 10/04/20 05:53 Dohle Bodies Not Reportable 10/04/20 05:53 Pelger-Huet Anomaly Not Reportable 10/04/20 05:53 Corrine Rods Not Reportable 10/04/20 05:53 Platelet Estimate Consistent w auto 10/04/20 05:53 Clumped Platelets Not Reportable 10/04/20 05:53 Plt Clumps, EDTA Not Reportable 10/04/20 05:53 Large Platelets Not Reportable 10/04/20 05:53 Giant Platelets Not Reportable 10/04/20 05:53 Platelet Satelliting Not Reportable 10/04/20 05:53 Plt Morphology Comment Not Reportable 10/04/20 05:53 RBC Morphology Normal 10/04/20 05:53 Dimorphic RBCs Not Reportable 10/04/20 05:53 Polychromasia Not Reportable 10/04/20 05:53 Hypochromasia Not Reportable 10/04/20 05:53 Poikilocytosis Not Reportable 10/04/20 05:53 Anisocytosis Not Reportable 10/04/20 05:53 Microcytosis Not Reportable 10/04/20 05:53 Macrocytosis Not Reportable 10/04/20 05:53 Spherocytes Not Reportable 10/04/20 05:53 Pappenheimer Bodies Not Reportable 10/04/20 05:53 Sickle Cells Not Reportable 10/04/20 05:53 Target Cells Not Reportable 10/04/20 05:53 Tear Drop Cells Not Reportable 10/04/20 05:53 Ovalocytes Not Reportable 10/04/20 05:53 Helmet Cells Not Reportable 10/04/20 05:53 House-Bradley Bodies Not Reportable 10/04/20 05:53 [place] Rings Not Reportable 10/04/20 05:53 Drums Cells Not Reportable 10/04/20 05:53 Bite Cells Not Reportable 10/04/20 05:53 Crenated Cell Not Reportable 10/04/20 05:53 Elliptocytes Not Reportable 10/04/20 05:53 Acanthocytes (Spur) Not Reportable 10/04/20 05:53 Rouleaux Not Reportable 10/04/20 05:53 Hemoglobin C Crystals Not Reportable 10/04/20 05:53 Schistocytes Not Reportable 10/04/20 05:53 Malaria parasites Not Reportable 10/04/20 05:53 Alonso Bodies Not Reportable 10/04/20 05:53 Hem Pathologist Commnt No 10/04/20 05:53 Sodium 138 mmol/L (137-145) 10/04/20 05:53 Potassium 3.9 mmol/L (3.6-5.0) 10/04/20 05:53 Chloride 101.7 mmol/L (98-107) 10/04/20 05:53 Carbon Dioxide 26 mmol/L (22-30) 10/04/20 05:53 Anion Gap 14 mmol/L 10/04/20 05:53 BUN 9 mg/dL (9-20) 10/04/20 05:53 Creatinine 0.9 mg/dL (0.8-1.3) 10/04/20 05:53 Estimated GFR > 60 ml/min 10/04/20 05:53 BUN/Creatinine Ratio 10 % 10/04/20 05:53 Glucose 97 mg/dL (75-100) 10/04/20 05:53 POC Glucose 94 mg/dL (70-105) 10/02/20 23:29 Hemoglobin A1c 5.3 % (4-6) 10/04/20 05:53 Calcium 9.1 mg/dL (8.4-10.2) 10/04/20 05:53 Total Bilirubin < 0.20 mg/dL (0.1-1.2) 10/04/20 05:53 AST 11 units/L (5-40) 10/04/20 05:53 ALT 6 units/L (7-56) L 10/04/20 05:53 Alkaline Phosphatase 84 units/L (35-129) 10/04/20 05:53 Total Protein 6.3 g/dL (6.3-8.2) 10/04/20 05:53 Albumin 3.6 g/dL (3.9-5) L 10/04/20 05:53 Albumin/Globulin Ratio 1.3 % 10/04/20 05:53 Triglycerides 115 mg/dL (2-149) 10/04/20 05:53 Cholesterol 189 mg/dL (50-199) 10/04/20 05:53 LDL Cholesterol Direct 146 mg/dL (50-130) H 10/04/20 05:53 HDL Cholesterol 33 mg/dL (40-59) L 10/04/20 05:53 Cholesterol/HDL Ratio 5.72 % 10/04/20 05:53 TSH 2.690 mlU/mL (0.270-4.200) 10/04/20 05:53 Last Vital Signs Temp 98.7 F 10/03/20 19:54 Pulse 86 10/03/20 19:54 Resp 16 10/03/20 19:54 BP 118/75 10/03/20 19:54 Pulse Ox 100 10/03/20 19:54
[2020-10-04] MEDS ORDERED: DIVALPROEX DR 250 MG TAB PO SCH (11:00)
[2020-10-04] MEDS: SERTRALINE 25 MG TAB PO SCH (13:40)
[2020-10-04] MEDS: DIVALPROEX DR 500 MG TAB PO SCH (21:35)
[2020-10-04] MEDS: traZODone 50 MG TAB PO SCH (21:36)
[2020-10-04] MEDS: MIRTAZAPINE 15 MG TAB PO SCH (21:36)
--- NOTE | 2020-10-05 08:45 | Progress Note ---
Subjective - Reason for Consult Consult date: 10/05/20 Reason for consult: Suicidal ideation - Chief Complaint Chief complaint: Per Nurse Note: Received patient at 1900. He is in the activity room interacting with peers. He denies needs. Will continue to monitor patient for safety. Patient was seen seating in the activity room. patient states he feel "much better." He states mood as "pretty good." he reports sleep and appetite as good. He denies any current suicidal/homicidal ideation and denies AVHs. REVIEW OF SYSTEMS Constitutional: Negative for weight loss ENT: Negative for stridor Respiratory: Negative for cough or hemoptysis All other systems reviewed and are negative MENTAL STATUS EXAMINATION General Appearance and Behavior: Age appropriate, dressed appropriately, calm and cooperative Cooperation: Participating Psychomotor Behavior: psychomotor normal Mood: "pretty good" Affect and affective range: Congruent with stated mood Thought Process: goal directed Thought Content: Speech: Normal volume, Regular rate and rhythm, Intellectual Functioning: Average Suicidal Ideation: yes Homicidal Ideation: Denies Hallucinations: auditory Delusions: None elicited Impulse Control: Unimpaired Insight and Judgment: Limited insight and judgment, Memory: Limited Attention: Undivided Orientation: Alert, oriented Assessment and Plan (1) MDD Treatment Plan Patient admitted for inpatient psychiatric evaluation, medication adjustment and close monitoring The patient's behavior, mood, sleep and appetite will be closely monitored. Patient enrolled in individual and group therapeutic sessions and encouraged to attend. Patient provided with a safe and structured environment. Patient's physical health needs will be addressed by the Hospitalist. Hospitalist Consulted Labs including CBC, CMP, Lipid profile and Hemoglobin A1C levels ordered for baseline reference [place] level 10/08 Social Assessment will be completed and the Ip Litigation Associate will work with patient and family to ensure a suitable and safe disposition Medication adjustment will be made as clinically indicated Continue- Depakote DR 500mg po BID Continue - Zoloft 25mg po daily Usual Wellness Mu-Ism/Preservation: - Start Trazodone 50 mg po QHS & 50 mg po QHS PRN between 10 PM & 2 AM for insomnia - Start Melatonin 5 mg po QHS to promote circadian rhythm - Start [place]-3 for brain health, reduce impulsivity, and as adjunctive treatment for mood disorder, continue upon discharge given overall benefits. - Start B1 prophylaxis with 200 mg po for 5 days The patient agreed on the treatment plan, understood the risk, benefit, alternative treatment, potential consequence of no treatment, and gave informed consent. Estimated days: 5 Post hospital care: primary care provider, psychiatric provider Mental Status Exam - Vital signs Last Vital Signs Temp 97.8 F 10/04/20 19:40 Pulse 68 10/04/20 19:40 Resp 18 10/04/20 19:40 BP 119/73 10/04/20 19:40 Pulse Ox 97 10/04/20 19:40
[2020-10-05] MEDS: TRIAMCINOLONE 0.5% CREAM 15 GM TP SCH ×2 (10:42→21:21)
[2020-10-05] MEDS: SERTRALINE 25 MG TAB PO SCH (10:42)
[2020-10-05] MEDS: DIVALPROEX DR 500 MG TAB PO SCH ×2 (10:42→21:21)
[2020-10-05] MEDS: ARIPiprazole 5 MG TAB PO SCH (10:42)
[2020-10-05] MEDS: traZODone 50 MG TAB PO SCH (21:21)
[2020-10-05] MEDS: MIRTAZAPINE 15 MG TAB PO SCH (21:21)
[2020-10-06] MEDS: TRIAMCINOLONE 0.5% CREAM 15 GM TP SCH ×2 (10:13→21:25)
[2020-10-06] MEDS: SERTRALINE 25 MG TAB PO SCH (10:13)
[2020-10-06] MEDS: DIVALPROEX DR 500 MG TAB PO SCH ×2 (10:13→21:23)
[2020-10-06] MEDS: ARIPiprazole 5 MG TAB PO SCH (10:13)
--- NOTE | 2020-10-06 10:54 | Progress Note ---
Subjective Date of service: 10/06/20 Principal diagnosis: SI, depression Subjective Comment: Per Nurse Note: pt received at 1935 in activity room watching television, no distress noted, will continue to monitor for safety. patient was seen today in the activity room. patient reports doing well. Patient reports mood as "great" He states sleep and appetite as good. Patient denies any current suicidal ideation and denies AVHs. REVIEW OF SYSTEMS Constitutional: Negative for weight loss ENT: Negative for stridor Respiratory: Negative for cough or hemoptysis All other systems reviewed and are negative MENTAL STATUS EXAMINATION General Appearance and Behavior: Age appropriate, dressed appropriately, calm and cooperative Cooperation: Participating Psychomotor Behavior: psychomotor normal Mood: "great" Affect and affective range: Congruent with stated mood Thought Process: goal directed Thought Content: denies SI Speech: Normal volume, Regular rate and rhythm, Intellectual Functioning: Average Suicidal Ideation: denies Homicidal Ideation: Denies Hallucinations: denies Delusions: None elicited Impulse Control: Unimpaired Insight and Judgment: good insight and judgment, Memory: Limited Attention: Undivided Orientation: Alert, oriented Assessment and Plan (1) MDD Treatment Plan Patient admitted for inpatient psychiatric evaluation, medication adjustment and close monitoring The patient's behavior, mood, sleep and appetite will be closely monitored. Patient enrolled in individual and group therapeutic sessions and encouraged to attend. Patient provided with a safe and structured environment. Patient's physical health needs will be addressed by the Hospitalist. Hospitalist Consulted Labs including CBC, CMP, Lipid profile and Hemoglobin A1C levels ordered for baseline reference [place] level 10/08 Social Assessment will be completed and the Sodium Methylate Operator will work with patient and family to ensure a suitable and safe disposition Medication adjustment will be made as clinically indicated Continue Depakote DR 500mg po BID Continue- Zoloft 25mg po daily Continue Aripiprazole 5mg po daily Continue Mirtazapine 15mg po daily Usual Wellness Caodaism/Preservation: - Start Trazodone 50 mg po QHS & 50 mg po QHS PRN between 10 PM & 2 AM for insomnia - Start Melatonin 5 mg po QHS to promote circadian rhythm - Start [place]-3 for brain health, reduce impulsivity, and as adjunctive treatment for mood disorder, continue upon discharge given overall benefits. - Start B1 prophylaxis with 200 mg po for 5 days The patient agreed on the treatment plan, understood the risk, benefit, alternative treatment, potential consequence of no treatment, and gave informed consent. Estimated days: 5 Post hospital care: primary care provider, psychiatric provider Medications and Allergies Allergies Allergy/AdvReac Type Severity Reaction Status Date / Time Penicillins Allergy Anaphylaxis Verified 10/02/20 00:08 sulfabenzamide Allergy Anaphylaxis Verified 10/02/20 00:08 Home Medications Medication Instructions Recorded Confirmed Last Taken Type Ibuprofen [Motrin] 600 mg PO Q8H PRN #30 tablet 04/08/20 10/03/20 Unknown Rx Triamcinolone Acetonide 1 applic TP BID #1 tube 04/08/20 10/03/20 Unknown Rx [Triamcinolone Acetonide Oint 0.5%] predniSONE [Deltasone] 40 mg PO QDAY #10 tab 04/08/20 10/03/20 Unknown Rx Crisaborole [Eucrisa] 60 gm TP BID #1 tube 08/19/20 10/03/20 Unknown Rx predniSONE [Deltasone] 20 mg PO QDAY 10 Days tab 08/19/20 10/03/[address] [DepaKOTE DR] 125 mg PO BID #60 tablet 10/02/20 10/03/20 Unknown Rx Mirtazapine [Remeron] 15 mg PO QHS #30 tablet 10/02/20 10/03/20 Unknown Rx Active Meds: Active Medications Aripiprazole (Aripiprazole 5 Mg Tab) 5 mg PO QDAY [facility] Last Admin: 10/06/20 10:13 Dose: 5 mg Documented by: Divalproex Sodium (Divalproex Dr 500 Mg Tab) 500 mg PO BID [facility] Last Admin: 10/06/20 10:13 Dose: 500 mg Documented by: Ibuprofen (Ibuprofen 600 Mg Tab) 600 mg PO Q8H PRN PRN Reason: PAIN Melatonin (Melatonin 5 Mg Tab) 5 mg PO QHS PRN PRN Reason: Sleep Mirtazapine (Mirtazapine 15 Mg Tab) 15 mg PO QHS [facility] Last Admin: 10/05/20 21:21 Dose: 15 mg Documented by: Miscellaneous Medication (Crisaborole [Eucrisa]) 60 gm TP BID [facility] Sertraline HCl (Sertraline 25 Mg Tab) 25 mg PO QDAY [facility] Last Admin: 10/06/20 10:13 Dose: 25 mg Documented by: Trazodone HCl (Trazodone 50 Mg Tab) 50 mg PO QHS [facility] Last Admin: 10/05/20 21:21 Dose: 50 mg Documented by: Triamcinolone Acetonide (Triamcinolone 0.5% Cream 15 Gm) 1 applic TP BID [facility] Last Admin: 10/06/20 10:13 Dose: 1 applic Documented by: Results - Results Labs/Vitals: Laboratory Last Values WBC 7.1 K/mm3 (4.5-11.0) 10/04/20 05:53 RBC 4.61 M/mm3 (3.65-5.03) 10/04/20 05:53 Hgb 13.2 gm/dl (11.8-15.2) 10/04/20 05:53 Hct 37.6 % (35.5-45.6) 10/04/20 05:53 MCV 82 fl (84-94) L 10/04/20 05:53 MCH 29 pg (28-32) 10/04/20 05:53 MCHC 35 % (32-34) H 10/04/20 05:53 RDW 16.0 % (13.2-15.2) H 10/04/20 05:53 Plt Count 180 K/mm3 (140-440) 10/04/20 05:53 [place] % (Auto) Plug Shaper Hand 10/04/20 05:53 Add Manual Diff Complete 10/04/20 05:53 Total Counted 100 10/04/20 05:53 Seg Neuts % (Manual) 44.0 % (40.0-70.0) 10/04/20 05:53 Lymphocytes % (Manual) 33.0 % (13.4-35.0) 10/04/20 05:53 Reactive Lymphs % (Man) 1.0 % 10/04/20 05:53 Monocytes % (Manual) 18.0 % (0.0-7.3) H 10/04/20 05:53 Eosinophils % (Manual) 4.0 % (0.0-4.3) 10/04/20 05:53 Nucleated RBC % Not Reportable 10/04/20 05:53 Seg Neutrophils # Man 3.1 K/mm3 (1.8-7.7) 10/04/20 05:53 Band Neutrophils # 0.0 K/mm3 10/04/20 05:53 Lymphocytes # (Manual) 2.3 K/mm3 (1.2-5.4) 10/04/20 05:53 Abs React Lymphs (Man) 0.1 K/mm3 10/04/20 05:53 Monocytes # (Manual) 1.3 K/mm3 (0.0-0.8) H 10/04/20 05:53 Eosinophils # (Manual) 0.3 K/mm3 (0.0-0.4) 10/04/20 05:53 Basophils # (Manual) 0.0 K/mm3 (0.0-0.1) 10/04/20 05:53 Metamyelocytes # 0.0 K/mm3 10/04/20 05:53 Myelocytes # 0.0 K/mm3 10/04/20 05:53 Promyelocytes # 0.0 K/mm3 10/04/20 05:53 Blast Cells # 0.0 K/mm3 10/04/20 05:53 WBC Morphology Not Reportable 10/04/20 05:53 Hypersegmented Neuts Not Reportable 10/04/20 05:53 Hyposegmented Neuts Not Reportable 10/04/20 05:53 Hypogranular Neuts Not Reportable 10/04/20 05:53 Smudge Cells Not Reportable 10/04/20 05:53 Toxic Granulation Not Reportable 10/04/20 05:53 Toxic Vacuolation Not Reportable 10/04/20 05:53 Dohle Bodies Not Reportable 10/04/20 05:53 Pelger-Huet Anomaly Not Reportable 10/04/20 05:53 Corrine Rods Not Reportable 10/04/20 05:53 Platelet Estimate Consistent w auto 10/04/20 05:53 Clumped Platelets Not Reportable 10/04/20 05:53 Plt Clumps, EDTA Not Reportable 10/04/20 05:53 Large Platelets Not Reportable 10/04/20 05:53 Giant Platelets Not Reportable 10/04/20 05:53 Platelet Satelliting Not Reportable 10/04/20 05:53 Plt Morphology Comment Not Reportable 10/04/20 05:53 RBC Morphology Normal 10/04/20 05:53 Dimorphic RBCs Not Reportable 10/04/20 05:53 Polychromasia Not Reportable 10/04/20 05:53 Hypochromasia Not Reportable 10/04/20 05:53 Poikilocytosis Not Reportable 10/04/20 05:53 Anisocytosis Not Reportable 10/04/20 05:53 Microcytosis Not Reportable 10/04/20 05:53 Macrocytosis Not Reportable 10/04/20 05:53 Spherocytes Not Reportable 10/04/20 05:53 Pappenheimer Bodies Not Reportable 10/04/20 05:53 Sickle Cells Not Reportable 10/04/20 05:53 Target Cells Not Reportable 10/04/20 05:53 Tear Drop Cells Not Reportable 10/04/20 05:53 Ovalocytes Not Reportable 10/04/20 05:53 Helmet Cells Not Reportable 10/04/20 05:53 House-[place] Bodies Not Reportable 10/04/20 05:53 Ronda Rings Not Reportable 10/04/20 05:53 [place] Cells Not Reportable 10/04/20 05:53 Bite Cells Not Reportable 10/04/20 05:53 Crenated Cell Not Reportable 10/04/20 05:53 Elliptocytes Not Reportable 10/04/20 05:53 Acanthocytes (Spur) Not Reportable 10/04/20 05:53 Rouleaux Not Reportable 10/04/20 05:53 Hemoglobin C Crystals Not Reportable 10/04/20 05:53 Schistocytes Not Reportable 10/04/20 05:53 Malaria parasites Not Reportable 10/04/20 05:53 Alonso Bodies Not Reportable 10/04/20 05:53 Hem Pathologist Commnt No 10/04/20 05:53 Sodium 138 mmol/L (137-145) 10/04/20 05:53 Potassium 3.9 mmol/L (3.6-5.0) 10/04/20 05:53 Chloride 101.7 mmol/L (98-107) 10/04/20 05:53 Carbon Dioxide 26 mmol/L (22-30) 10/04/20 05:53 Anion Gap 14 mmol/L 10/04/20 05:53 BUN 9 mg/dL (9-20) 10/04/20 05:53 Creatinine 0.9 mg/dL (0.8-1.3) 10/04/20 05:53 Estimated GFR > 60 ml/min 10/04/20 05:53 BUN/Creatinine Ratio 10 % 10/04/20 05:53 Glucose 97 mg/dL (75-100) 10/04/20 05:53 POC Glucose 94 mg/dL (70-105) 10/02/20 23:29 Hemoglobin A1c 5.3 % (4-6) 10/04/20 05:53 Calcium 9.1 mg/dL (8.4-10.2) 10/04/20 05:53 Total Bilirubin < 0.20 mg/dL (0.1-1.2) 10/04/20 05:53 AST 11 units/L (5-40) 10/04/20 05:53 ALT 6 units/L (7-56) L 10/04/20 05:53 Alkaline Phosphatase 84 units/L (35-129) 10/04/20 05:53 Total Protein 6.3 g/dL (6.3-8.2) 10/04/20 05:53 Albumin 3.6 g/dL (3.9-5) L 10/04/20 05:53 Albumin/Globulin Ratio 1.3 % 10/04/20 05:53 Triglycerides 115 mg/dL (2-149) 10/04/20 05:53 Cholesterol 189 mg/dL (50-199) 10/04/20 05:53 LDL Cholesterol Direct 146 mg/dL (50-130) H 10/04/20 05:53 HDL Cholesterol 33 mg/dL (40-59) L 10/04/20 05:53 Cholesterol/HDL Ratio 5.72 % 10/04/20 05:53 TSH 2.690 mlU/mL (0.270-4.200) 10/04/20 05:53 Last Vital Signs Temp 97.9 F 10/06/20 08:15 Pulse 69 10/06/20 08:15 Resp 18 10/06/20 08:15 BP 101/55 10/06/20 08:15 Pulse Ox 98 10/06/20 08:15
[2020-10-06] MEDS: traZODone 50 MG TAB PO SCH (21:23)
[2020-10-06] MEDS: MIRTAZAPINE 15 MG TAB PO SCH (21:24)
--- NOTE | 2020-10-07 09:14 | Progress Note ---
Subjective Date of service: 10/07/20 Principal diagnosis: SI, depression Subjective Comment: Per Nurse Note: Last evening the patient interacted appropriately with others. He denies si/hi/ah/vh. Staff has observed him talking to himself. His appetite is good and he is medication compliant. Overnight the patient rested quietly. He slept 8 hours. Will continue to monitor patient for safety. I interviewed the patient this morning. Medical records reviewed and patient's progress was discussed with unit staff. The patient reports doing well. Patient is focused on discharge. " She is focused on discharge. Appetite is good. Sleep last night was good. Patient d enies current SI/HI and denies AVHs. REVIEW OF SYSTEMS Constitutional: Negative for weight loss ENT: Negative for stridor Respiratory: Negative for cough or hemoptysis All other systems reviewed and are negative MENTAL STATUS EXAMINATION General Appearance and Behavior: Age appropriate, dressed appropriately, calm and cooperative Cooperation: Participating Psychomotor Behavior: psychomotor normal Mood: "good" Affect and affective range: Congruent with stated mood Thought Process: Goal directed Thought Content: Denies SI Speech: Normal volume, Regular rate and rhythm, Intellectual Functioning: Average Suicidal Ideation: Denies Homicidal Ideation: Denies Hallucinations: Denies Delusions: None elicited Impulse Control: Unimpaired Insight and Judgment: good insight and judgment, Memory: Limited Attention: Undivided Orientation: Alert, oriented Assessment and Plan (1) MDD Treatment Plan Patient admitted for inpatient psychiatric evaluation, medication adjustment and close monitoring The patient's behavior, mood, sleep and appetite will be closely monitored. Patient enrolled in individual and group therapeutic sessions and encouraged to attend. Patient provided with a safe and structured environment. Patient's physical health needs will be addressed by the Hospitalist. Hospitalist Consulted Labs including CBC, CMP, Lipid profile and Hemoglobin A1C levels ordered for baseline reference [place] level 10/08 Social Assessment will be completed and the Spot Welder Line will work with patient and family to ensure a suitable and safe disposition Medication adjustment will be made as clinically indicated Continue Depakote DR 500mg po BID Continue- Zoloft 25mg po daily Continue Aripiprazole 5mg po daily Continue Mirtazapine 15mg po daily Usual Wellness Christian/Preservation: - Start Trazodone 50 mg po QHS & 50 mg po QHS PRN between 10 PM & 2 AM for insomnia - Start Melatonin 5 mg po QHS to promote circadian rhythm - Start [place]-3 for brain health, reduce impulsivity, and as adjunctive tr eatment for mood disorder, continue upon discharge given overall benefits. - Start B1 prophylaxis with 200 mg po for 5 days The patient agreed on the treatment plan, understood the risk, benefit, al ternative treatment, potential consequence of no treatment, and gave informed consent. Estimated days: 5 Post hospital care: primary care provider, psychiatric provider Medications and Allergies Medications and Allergies Allergies Allergy/AdvReac Type Severity Reaction Status Date / Time Penicillins Allergy Anaphylaxis Verified 10/02/20 00:08 sulfabenzamide Allergy Anaphylaxis Verified 10/02/20 00:08 Home Medications Medication Instructions Recorded Confirmed Last Taken Type Ibuprofen [Motrin 600 MG tab] 600 mg PO Q8H PRN #30 tablet 04/08/20 10/03/20 Unknown Rx Triamcinolone Acetonide 1 applic TP BID #1 tube 04/08/20 10/03/20 Unknown Rx [Triamcinolone Acetonide Oint 0.5%] predniSONE [Deltasone] 40 mg PO QDAY #10 tab 04/08/20 10/03/20 Unknown Rx Crisaborole [Eucrisa] 60 gm TP BID #1 tube 08/19/20 10/03/20 Unknown Rx predniSONE [Deltasone] 20 mg PO QDAY 10 Days tab 08/19/20 10/03/20 Unknown Rx ARIPiprazole 5 mg PO QDAY 30 Days #30 tablet 10/08/[address] [Depakote Dr] 500 mg PO BID 30 Days #60 tablet 10/08/20 Unknown Rx Melatonin [Melatonin 5MG TAB] 5 mg PO QHS PRN 30 Days #30 tablet 10/08/20 Unknown Rx Mirtazapine [Remeron 15mg TAB] 15 mg PO QHS 30 Days #30 tablet 10/08/20 Unknown Rx Sertraline [Zoloft] 25 mg PO QDAY 30 Days #30 tablet 10/08/20 Unknown Rx Triamcinolone 0.5% [Kenalog 0.5% 1 applic TP BID tube 10/08/20 Unknown Rx CREAM] traZODone [Desyrel] 50 mg PO QHS 30 Days #30 tablet 10/08/20 Unknown Rx Active Meds: Active Medications Aripiprazole (Aripiprazole 5 Mg Tab) 5 mg PO QDAY [facility] Last Admin: 10/06/20 10:13 Dose: 5 mg Documented by: Divalproex Sodium (Divalproex Dr 500 Mg Tab) 500 mg PO BID [facility] Last Admin: 10/06/20 21:23 Dose: 500 mg Documented by: Ibuprofen (Ibuprofen 600 Mg Tab) 600 mg PO Q8H PRN PRN Reason: PAIN Melatonin (Melatonin 5 Mg Tab) 5 mg PO QHS PRN PRN Reason: Sleep Mirtazapine (Mirtazapine 15 Mg Tab) 15 mg PO QHS [facility] Last Admin: 10/06/20 21:24 Dose: 15 mg Documented by: Miscellaneous Medication (Crisaborole [Eucrisa]) 60 gm TP BID [facility] Sertraline HCl (Sertraline 25 Mg Tab) 25 mg PO QDAY [facility] Last Admin: 10/06/20 10:13 Dose: 25 mg Documented by: Trazodone HCl (Trazodone 50 Mg Tab) 50 mg PO QHS [facility] Last Admin: 10/06/20 21:23 Dose: 50 mg Documented by: Triamcinolone Acetonide (Triamcinolone 0.5% Cream 15 Gm) 1 applic TP BID [facility] Last Admin: 10/06/20 21:25 Dose: 1 applic Documented by: Results - Results Labs/Vitals: Laboratory Last Values WBC 7.1 K/mm3 (4.5-11.0) 10/04/20 05:53 RBC 4.61 M/mm3 (3.65-5.03) 10/04/20 05:53 Hgb 13.2 gm/dl (11.8-15.2) 10/04/20 05:53 Hct 37.6 % (35.5-45.6) 10/04/20 05:53 MCV 82 fl (84-94) L 10/04/20 05:53 MCH 29 pg (28-32) 10/04/20 05:53 MCHC 35 % (32-34) H 10/04/20 05:53 RDW 16.0 % (13.2-15.2) H 10/04/20 05:53 Plt Count 180 K/mm3 (140-440) 10/04/20 05:53 [place] % (Auto) Contingents Supervisor 10/04/20 05:53 Add Manual Diff Complete 10/04/20 05:53 Total Counted 100 10/04/20 05:53 Seg Neuts % (Manual) 44.0 % (40.0-70.0) 10/04/20 05:53 Lymphocytes % (Manual) 33.0 % (13.4-35.0) 10/04/20 05:53 Reactive Lymphs % (Man) 1.0 % 10/04/20 05:53 Monocytes % (Manual) 18.0 % (0.0-7.3) H 10/04/20 05:53 Eosinophils % (Manual) 4.0 % (0.0-4.3) 10/04/20 05:53 Nucleated RBC % Not Reportable 10/04/20 05:53 Seg Neutrophils # Man 3.1 K/mm3 (1.8-7.7) 10/04/20 05:53 Band Neutrophils # 0.0 K/mm3 10/04/20 05:53 Lymphocytes # (Manual) 2.3 K/mm3 (1.2-5.4) 10/04/20 05:53 Abs React Lymphs (Man) 0.1 K/mm3 10/04/20 05:53 Monocytes # (Manual) 1.3 K/mm3 (0.0-0.8) H 10/04/20 05:53 Eosinophils # (Manual) 0.3 K/mm3 (0.0-0.4) 10/04/20 05:53 Basophils # (Manual) 0.0 K/mm3 (0.0-0.1) 10/04/20 05:53 Metamyelocytes # 0.0 K/mm3 10/04/20 05:53 Myelocytes # 0.0 K/mm3 10/04/20 05:53 Promyelocytes # 0.0 K/mm3 10/04/20 05:53 Blast Cells # 0.0 K/mm3 10/04/20 05:53 WBC Morphology Not Reportable 10/04/20 05:53 Hypersegmented Neuts Not Reportable 10/04/20 05:53 Hyposegmented Neuts Not Reportable 10/04/20 05:53 Hypogranular Neuts Not Reportable 10/04/20 05:53 Smudge Cells Not Reportable 10/04/20 05:53 Toxic Granulation Not Reportable 10/04/20 05:53 Toxic Vacuolation Not Reportable 10/04/20 05:53 Dohle Bodies Not Reportable 10/04/20 05:53 Pel[place]-Huet Anomaly Not Reportable 10/04/20 05:53 Corrine Rods Not Reportable 10/04/20 05:53 Platelet Estimate Consistent w auto 10/04/20 05:53 Clumped Platelets Not Reportable 10/04/20 05:53 Plt Clumps, EDTA Not Reportable 10/04/20 05:53 Large Platelets Not Reportable 10/04/20 05:53 Giant Platelets Not Reportable 10/04/20 05:53 Platelet Satelliting Not Reportable 10/04/20 05:53 Plt Morphology Comment Not Reportable 10/04/20 05:53 RBC Morphology Normal 10/04/20 05:53 Dimorphic RBCs Not Reportable 10/04/20 05:53 Polychromasia Not Reportable 10/04/20 05:53 Hypochromasia Not Reportable 10/04/20 05:53 Poikilocytosis Not Reportable 10/04/20 05:53 Anisocytosis Not Reportable 10/04/20 05:53 Microcytosis Not Reportable 10/04/20 05:53 Macrocytosis Not Reportable 10/04/20 05:53 Spherocytes Not Reportable 10/04/20 05:53 Pappenheimer Bodies Not Reportable 10/04/20 05:53 Sickle Cells Not Reportable 10/04/20 05:53 Target Cells Not Reportable 10/04/20 05:53 Tear Drop Cells Not Reportable 10/04/20 05:53 Ovalocytes Not Reportable 10/04/20 05:53 Helmet Cells Not Reportable 10/04/20 05:53 House-[place] Bodies Not Reportable 10/04/20 05:53 [place] Rings Not Reportable 10/04/20 05:53 [place] Cells Not Reportable 10/04/20 05:53 Bite Cells Not Reportable 10/04/20 05:53 Crenated Cell Not Reportable 10/04/20 05:53 Elliptocytes Not Reportable 10/04/20 05:53 Acanthocytes (Spur) Not Reportable 10/04/20 05:53 Rouleaux Not Reportable 10/04/20 05:53 Hemoglobin C Crystals Not Reportable 10/04/20 05:53 Schistocytes Not Reportable 10/04/20 05:53 Malaria parasites Not Reportable 10/04/20 05:53 Alonso Bodies Not Reportable 10/04/20 05:53 Hem Pathologist Commnt No 10/04/20 05:53 Sodium 138 mmol/L (137-145) 10/04/20 05:53 Potassium 3.9 mmol/L (3.6-5.0) 10/04/20 05:53 Chloride 101.7 mmol/L (98-107) 10/04/20 05:53 Carbon Dioxide 26 mmol/L (22-30) 10/04/20 05:53 Anion Gap 14 mmol/L 10/04/20 05:53 BUN 9 mg/dL (9-20) 10/04/20 05:53 Creatinine 0.9 mg/dL (0.8-1.3) 10/04/20 05:53 Estimated GFR > 60 ml/min 10/04/20 05:53 BUN/Creatinine Ratio 10 % 10/04/20 05:53 Glucose 97 mg/dL (75-100) 10/04/20 05:53 POC Glucose 94 mg/dL (70-105) 10/02/20 23:29 Hemoglobin A1c 5.3 % (4-6) 10/04/20 05:53 Calcium 9.1 mg/dL (8.4-10.2) 10/04/20 05:53 Total Bilirubin < 0.20 mg/dL (0.1-1.2) 10/04/20 05:53 AST 11 units/L (5-40) 10/04/20 05:53 ALT 6 units/L (7-56) L 10/04/20 05:53 Alkaline Phosphatase 84 units/L (35-129) 10/04/20 05:53 Total Protein 6.3 g/dL (6.3-8.2) 10/04/20 05:53 Albumin 3.6 g/dL (3.9-5) L 10/04/20 05:53 Albumin/Globulin Ratio 1.3 % 10/04/20 05:53 Triglycerides 115 mg/dL (2-149) 10/04/20 05:53 Cholesterol 189 mg/dL (50-199) 10/04/20 05:53 LDL Cholesterol Direct 146 mg/dL (50-130) H 10/04/20 05:53 HDL Cholesterol 33 mg/dL (40-59) L 10/04/20 05:53 Cholesterol/HDL Ratio 5.72 % 10/04/20 05:53 TSH 2.690 mlU/mL (0.270-4.200) 10/04/20 05:53 Last Vital Signs Temp 98.4 F 10/07/20 08:27 Pulse 71 10/07/20 08:27 Resp 18 10/07/20 08:27 BP 121/71 10/07/20 08:27 Pulse Ox 97 10/07/20 08:27
[2020-10-07] MEDS: TRIAMCINOLONE 0.5% CREAM 15 GM TP SCH ×2 (09:24→21:12)
[2020-10-07] MEDS: ARIPiprazole 5 MG TAB PO SCH (09:25)
[2020-10-07] MEDS: SERTRALINE 25 MG TAB PO SCH (09:25)
[2020-10-07] MEDS: DIVALPROEX DR 500 MG TAB PO SCH ×2 (09:25→21:13)
[2020-10-07] MEDS: MIRTAZAPINE 15 MG TAB PO SCH (21:13)
[2020-10-07] MEDS: traZODone 50 MG TAB PO SCH (21:13)
[2020-10-07 23:43] VITALS: BP 108/65
--- NOTE | 2020-10-08 08:55 | Progress Note ---
Subjective Date of service: 10/08/20 Principal diagnosis: SI, depression Subjective Comment: Per Nurse Note: Last evening the patient spent in the activity room interacting with others. He smiles on approach. Patient denies si/hi/ah/vh. His affect is brighter than previously. Patient states he no longer feels depressed. He has a good appetite and is medication compliant. Overnight the patient rested quietly. He slept 8 hours. Will continue to monitor patient for safety. I interviewed the patient this morning. Medical records reviewed and patient's progress was discussed with unit staff. The patient was seen in the activity room socializing with peers. Patient reports doing "wonderful." Appetite is good. Sleep last night was good. No significant side effects reported. Patient denies current SI/HI and denies AVHs. REVIEW OF SYSTEMS Constitutional: Negative for weight loss ENT: Negative for stridor Respiratory: Negative for cough or hemoptysis All other systems reviewed and are negative MENTAL STATUS EXAMINATION General Appearance and Behavior: Age appropriate, dressed appropriately, calm and cooperative Cooperation: Participating Psychomotor Behavior: psychomotor normal Mood: "wonderful" Affect and affective range: Congruent with stated mood Thought Process: Goal directed Thought Content: Denies SI Speech: Normal volume, Regular rate and rhythm, Intellectual Functioning: Average Suicidal Ideation: Denies Homicidal Ideation: Denies Hallucinations: Denies Delusions: None elicited Impulse Control: Unimpaired Insight and Judgment: good insight and judgment, Memory: Limited Attention: Undivided Orientation: Alert, oriented Assessment and Plan (1) MDD Treatment Plan Patient admitted for inpatient psychiatric evaluation, medication adjustment and close monitoring The patient's behavior, mood, sleep and appetite will be closely monitored. Patient enrolled in individual and group therapeutic sessions and encouraged to attend. Patient provided with a safe and structured environment. Patient's physical health needs will be addressed by the Hospitalist. Hospitalist Consulted Labs including CBC, CMP, Lipid profile and Hemoglobin A1C levels ordered for baseline reference [place] level 10/08- Pending result Social Assessment will be completed and the Cook Candy will work with patient and family to ensure a suitable and safe disposition Medication adjustment will be made as clinically indicated Continue Depakote DR 500mg po BID Continue- Zoloft 25mg po daily Continue Aripiprazole 5mg po daily Continue Mirtazapine 15mg po daily Usual Wellness Islam/Preservation: - Start Trazodone 50 mg po QHS & 50 mg po QHS PRN between 10 PM & 2 AM for insomnia - Start Melatonin 5 mg po QHS to promote circadian rhythm - Start [place]-3 for brain health, reduce impulsivity, and as adjunctive treatment for mood disorder, continue upon discharge given overall benefits. - Start B1 prophylaxis with 200 mg po for 5 days The patient agreed on the treatment plan, understood the risk, benefit, alternative treatment, potential consequence of no treatment, and gave informed consent. Estimated days: 5 Post hospital care: primary care provider, psychiatric provider Medications and Allergies Allergies Allergy/AdvReac Type Severity Reaction Status Date / Time Penicillins Allergy Anaphylaxis Verified 10/02/20 00:08 sulfabenzamide Allergy Anaphylaxis Verified 10/02/20 00:08 Home Medications Medication Instructions Recorded Confirmed Last Taken Type Ibuprofen [Motrin] 600 mg PO Q8H PRN #30 tablet 04/08/20 10/03/20 Unknown Rx Triamcinolone Acetonide 1 applic TP BID #1 tube 04/08/20 10/03/20 Unknown Rx [Triamcinolone Acetonide Oint 0.5%] predniSONE [Deltasone] 40 mg PO QDAY #10 tab 04/08/20 10/03/20 Unknown Rx Crisaborole [Eucrisa] 60 gm TP BID #1 tube 08/19/20 10/03/20 Unknown Rx predniSONE [Deltasone] 20 mg PO QDAY 10 Days tab 08/19/20 10/03/[address] [DepMelissa BAILON] 125 mg PO BID #60 tablet 10/02/20 10/03/20 Unknown Rx Mirtazapine [Remeron] 15 mg PO QHS #30 tablet 10/02/20 10/03/20 Unknown Rx Active Meds: Active Medications Aripiprazole (Aripiprazole 5 Mg Tab) 5 mg PO QDAY [facility] Last Admin: 10/07/20 09:25 Dose: 5 mg Documented by: Divalproex Sodium (Divalproex Dr 500 Mg Tab) 500 mg PO BID [facility] Last Admin: 10/07/20 21:13 Dose: 500 mg Documented by: Ibuprofen (Ibuprofen 600 Mg Tab) 600 mg PO Q8H PRN PRN Reason: PAIN Melatonin (Melatonin 5 Mg Tab) 5 mg PO QHS PRN PRN Reason: Sleep Mirtazapine (Mirtazapine 15 Mg Tab) 15 mg PO QHS [facility] Last Admin: 10/07/20 21:13 Dose: 15 mg Documented by: Miscellaneous Medication (Crisaborole [Eucrisa]) 60 gm TP BID [facility] Sertraline HCl (Sertraline 25 Mg Tab) 25 mg PO QDAY [facility] Last Admin: 10/07/20 09:25 Dose: 25 mg Documented by: Trazodone HCl (Trazodone 50 Mg Tab) 50 mg PO QHS [facility] Last Admin: 10/07/20 21:13 Dose: 50 mg Documented by: Triamcinolone Acetonide (Triamcinolone 0.5% Cream 15 Gm) 1 applic TP BID [facility] Last Admin: 10/07/20 21:12 Dose: 1 applic Documented by: Results - Results Labs/Vitals: Laboratory Last Values WBC 7.1 K/mm3 (4.5-11.0) 10/04/20 05:53 RBC 4.61 M/mm3 (3.65-5.03) 10/04/20 05:53 Hgb 13.2 gm/dl (11.8-15.2) 10/04/20 05:53 Hct 37.6 % (35.5-45.6) 10/04/20 05:53 MCV 82 fl (84-94) L 10/04/20 05:53 MCH 29 pg (28-32) 10/04/20 05:53 MCHC 35 % (32-34) H 10/04/20 05:53 RDW 16.0 % (13.2-15.2) H 10/04/20 05:53 Plt Count 180 K/mm3 (140-440) 10/04/20 05:53 [place] % (Auto) [place] Agent 10/04/20 05:53 Add Manual Diff Complete 10/04/20 05:53 Total Counted 100 10/04/20 05:53 Seg Neuts % (Manual) 44.0 % (40.0-70.0) 10/04/20 05:53 Lymphocytes % (Manual) 33.0 % (13.4-35.0) 10/04/20 05:53 Reactive Lymphs % (Man) 1.0 % 10/04/20 05:53 Monocytes % (Manual) 18.0 % (0.0-7.3) H 10/04/20 05:53 Eosinophils % (Manual) 4.0 % (0.0-4.3) 10/04/20 05:53 Nucleated RBC % Not Reportable 10/04/20 05:53 Seg Neutrophils # Man 3.1 K/mm3 (1.8-7.7) 10/04/20 05:53 Band Neutrophils # 0.0 K/mm3 10/04/20 05:53 Lymphocytes # (Manual) 2.3 K/mm3 (1.2-5.4) 10/04/20 05:53 Abs React Lymphs (Man) 0.1 K/mm3 10/04/20 05:53 Monocytes # (Manual) 1.3 K/mm3 (0.0-0.8) H 10/04/20 05:53 Eosinophils # (Manual) 0.3 K/mm3 (0.0-0.4) 10/04/20 05:53 Basophils # (Manual) 0.0 K/mm3 (0.0-0.1) 10/04/20 05:53 Metamyelocytes # 0.0 K/mm3 10/04/20 05:53 Myelocytes # 0.0 K/mm3 10/04/20 05:53 Promyelocytes # 0.0 K/mm3 10/04/20 05:53 Blast Cells # 0.0 K/mm3 10/04/20 05:53 WBC Morphology Not Reportable 10/04/20 05:53 Hypersegmented Neuts Not Reportable 10/04/20 05:53 Hyposegmented Neuts Not Reportable 10/04/20 05:53 Hypogranular Neuts Not Reportable 10/04/20 05:53 Smudge Cells Not Reportable 10/04/20 05:53 Toxic Granulation Not Reportable 10/04/20 05:53 Toxic Vacuolation Not Reportable 10/04/20 05:53 Dohle Bodies Not Reportable 10/04/20 05:53 Pelger-Huet Anomaly Not Reportable 10/04/20 05:53 Corrine Rods Not Reportable 10/04/20 05:53 Platelet Estimate Consistent w auto 10/04/20 05:53 Clumped Platelets Not Reportable 10/04/20 05:53 Plt Clumps, EDTA Not Reportable 10/04/20 05:53 Large Platelets Not Reportable 10/04/20 05:53 Giant Platelets Not Reportable 10/04/20 05:53 Platelet Satelliting Not Reportable 10/04/20 05:53 Plt Morphology Comment Not Reportable 10/04/20 05:53 RBC Morphology Normal 10/04/20 05:53 Dimorphic RBCs Not Reportable 10/04/20 05:53 Polychromasia Not Reportable 10/04/20 05:53 Hypochromasia Not Reportable 10/04/20 05:53 Poikilocytosis Not Reportable 10/04/20 05:53 Anisocytosis Not Reportable 10/04/20 05:53 Microcytosis Not Reportable 10/04/20 05:53 Macrocytosis Not Reportable 10/04/20 05:53 Spherocytes Not Reportable 10/04/20 05:53 Pappenheimer Bodies Not Reportable 10/04/20 05:53 Sickle Cells Not Reportable 10/04/20 05:53 Target Cells Not Reportable 10/04/20 05:53 Tear Drop Cells Not Reportable 10/04/20 05:53 Ovalocytes Not Reportable 10/04/20 05:53 Helmet Cells Not Reportable 10/04/20 05:53 House-[place] Bodies Not Reportable 10/04/20 05:53 [place] Rings Not Reportable 10/04/20 05:53 [place] Cells Not Reportable 10/04/20 05:53 Bite Cells Not Reportable 10/04/20 05:53 Crenated Cell Not Reportable 10/04/20 05:53 Elliptocytes Not Reportable 10/04/20 05:53 Acanthocytes (Spur) Not Reportable 10/04/20 05:53 Rouleaux Not Reportable 10/04/20 05:53 Hemoglobin C Crystals Not Reportable 10/04/20 05:53 Schistocytes Not Reportable 10/04/20 05:53 Malaria parasites Not Reportable 10/04/20 05:53 Alonso Bodies Not Reportable 10/04/20 05:53 Hem Pathologist Commnt No 10/04/20 05:53 Sodium 138 mmol/L (137-145) 10/04/20 05:53 Potassium 3.9 mmol/L (3.6-5.0) 10/04/20 05:53 Chloride 101.7 mmol/L (98-107) 10/04/20 05:53 Carbon Dioxide 26 mmol/L (22-30) 10/04/20 05:53 Anion Gap 14 mmol/L 10/04/20 05:53 BUN 9 mg/dL (9-20) 10/04/20 05:53 Creatinine 0.9 mg/dL (0.8-1.3) 10/04/20 05:53 Estimated GFR > 60 ml/min 10/04/20 05:53 BUN/Creatinine Ratio 10 % 10/04/20 05:53 Glucose 97 mg/dL (75-100) 10/04/20 05:53 POC Glucose 94 mg/dL (70-105) 10/02/20 23:29 Hemoglobin A1c 5.3 % (4-6) 10/04/20 05:53 Calcium 9.1 mg/dL (8.4-10.2) 10/04/20 05:53 Total Bilirubin < 0.20 mg/dL (0.1-1.2) 10/04/20 05:53 AST 11 units/L (5-40) 10/04/20 05:53 ALT 6 units/L (7-56) L 10/04/20 05:53 Alkaline Phosphatase 84 units/L (35-129) 10/04/20 05:53 Total Protein 6.3 g/dL (6.3-8.2) 10/04/20 05:53 Albumin 3.6 g/dL (3.9-5) L 10/04/20 05:53 Albumin/Globulin Ratio 1.3 % 10/04/20 05:53 Triglycerides 115 mg/dL (2-149) 10/04/20 05:53 Cholesterol 189 mg/dL (50-199) 10/04/20 05:53 LDL Cholesterol Direct 146 mg/dL (50-130) H 10/04/20 05:53 HDL Cholesterol 33 mg/dL (40-59) L 10/04/20 05:53 Cholesterol/HDL Ratio 5.72 % 10/04/20 05:53 TSH 2.690 mlU/mL (0.270-4.200) 10/04/20 05:53 Last Vital Signs Temp 98.1 F 10/07/20 19:51 Pulse 77 10/07/20 19:51 Resp 16 10/07/20 19:51 BP 108/65 10/07/20 19:51 Pulse Ox 96 10/07/20 19:51
[2020-10-08] MEDS: SERTRALINE 25 MG TAB PO SCH (10:40)
[2020-10-08] MEDS: DIVALPROEX DR 500 MG TAB PO SCH (10:41)
[2020-10-08] MEDS: ARIPiprazole 5 MG TAB PO SCH (10:41)
[2020-10-08] MEDS: TRIAMCINOLONE 0.5% CREAM 15 GM TP SCH (10:41)
--- NOTE | 2020-10-08 15:23 | Discharge Summary ---
Providers - Providers Date of Admission: 10/02/20 22:40 Attending physician: DAYRON WOLFE MD 10/02/20 21:45 Consult to Physician [CONS] Routine Comment: Consulting Provider: ELIDA VELOZ Physician Instructions: Reason For Exam: H&P Primary care physician: LEASING PROPERTY MANAGER Hospitalization Reason for admission: Suicodal Ideation Condition: Stable Disposition: DC-01 TO HOME OR SELFCARE Allergies/Adverse Reactions: Allergies Penicillins Allergy (Verified 10/02/20 00:08) Anaphylaxis sulfabenzamide Allergy (Verified 10/02/20 00:08) Anaphylaxis Vital Signs: Last Vital Signs Temp 98.1 F 10/07/20 19:51 Pulse 77 10/07/20 19:51 Resp 16 10/07/20 19:51 BP 108/65 10/07/20 19:51 Pulse Ox 96 10/07/20 19:51 Last Lab: Laboratory Last Values WBC 7.1 K/mm3 (4.5-11.0) 10/04/20 05:53 RBC 4.61 M/mm3 (3.65-5.03) 10/04/20 05:53 Hgb 13.2 gm/dl (11.8-15.2) 10/04/20 05:53 Hct 37.6 % (35.5-45.6) 10/04/20 05:53 MCV 82 fl (84-94) L 10/04/20 05:53 MCH 29 pg (28-32) 10/04/20 05:53 MCHC 35 % (32-34) H 10/04/20 05:53 RDW 16.0 % (13.2-15.2) H 10/04/20 05:53 Plt Count 180 K/mm3 (140-440) 10/04/20 05:53 [place] % (Auto) Laborer Syrup Machine 10/04/20 05:53 Add Manual Diff Complete 10/04/20 05:53 Total Counted 100 10/04/20 05:53 Seg Neuts % (Manual) 44.0 % (40.0-70.0) 10/04/20 05:53 Lymphocytes % (Manual) 33.0 % (13.4-35.0) 10/04/20 05:53 Reactive Lymphs % (Man) 1.0 % 10/04/20 05:53 Monocytes % (Manual) 18.0 % (0.0-7.3) H 10/04/20 05:53 Eosinophils % (Manual) 4.0 % (0.0-4.3) 10/04/20 05:53 Nucleated RBC % Not Reportable 10/04/20 05:53 Seg Neutrophils # Man 3.1 K/mm3 (1.8-7.7) 10/04/20 05:53 Band Neutrophils # 0.0 K/mm3 10/04/20 05:53 Lymphocytes # (Manual) 2.3 K/mm3 (1.2-5.4) 10/04/20 05:53 Abs React Lymphs (Man) 0.1 K/mm3 10/04/20 05:53 Monocytes # (Manual) 1.3 K/mm3 (0.0-0.8) H 10/04/20 05:53 Eosinophils # (Manual) 0.3 K/mm3 (0.0-0.4) 10/04/20 05:53 Basophils # (Manual) 0.0 K/mm3 (0.0-0.1) 10/04/20 05:53 Metamyelocytes # 0.0 K/mm3 10/04/20 05:53 Myelocytes # 0.0 K/mm3 10/04/20 05:53 Promyelocytes # 0.0 K/mm3 10/04/20 05:53 Blast Cells # 0.0 K/mm3 10/04/20 05:53 WBC Morphology Not Reportable 10/04/20 05:53 Hypersegmented Neuts Not Reportable 10/04/20 05:53 Hyposegmented Neuts Not Reportable 10/04/20 05:53 Hypogranular Neuts Not Reportable 10/04/20 05:53 Smudge Cells Not Reportable 10/04/20 05:53 Toxic Granulation Not Reportable 10/04/20 05:53 Toxic Vacuolation Not Reportable 10/04/20 05:53 Dohle Bodies Not Reportable 10/04/20 05:53 Pelger-Huet Anomaly Not Reportable 10/04/20 05:53 Corrine Rods Not Reportable 10/04/20 05:53 Platelet Estimate Consistent w auto 10/04/20 05:53 Clumped Platelets Not Reportable 10/04/20 05:53 Plt Clumps, EDTA Not Reportable 10/04/20 05:53 Large Platelets Not Reportable 10/04/20 05:53 Giant Platelets Not Reportable 10/04/20 05:53 Platelet Satelliting Not Reportable 10/04/20 05:53 Plt Morphology Comment Not Reportable 10/04/20 05:53 RBC Morphology Normal 10/04/20 05:53 Dimorphic RBCs Not Reportable 10/04/20 05:53 Polychromasia Not Reportable 10/04/20 05:53 Hypochromasia Not Reportable 10/04/20 05:53 Poikilocytosis Not Reportable 10/04/20 05:53 Anisocytosis Not Reportable 10/04/20 05:53 Microcytosis Not Reportable 10/04/20 05:53 Macrocytosis Not Reportable 10/04/20 05:53 Spherocytes Not Reportable 10/04/20 05:53 Pappenheimer Bodies Not Reportable 10/04/20 05:53 Sickle Cells Not Reportable 10/04/20 05:53 Target Cells Not Reportable 10/04/20 05:53 Tear Drop Cells Not Reportable 10/04/20 05:53 Ovalocytes Not Reportable 10/04/20 05:53 Helmet Cells Not Reportable 10/04/20 05:53 House-[place] Bodies Not Reportable 10/04/20 05:53 [place] Rings Not Reportable 10/04/20 05:53 [place] Cells Not Reportable 10/04/20 05:53 Bite Cells Not Reportable 10/04/20 05:53 Crenated Cell Not Reportable 10/04/20 05:53 Elliptocytes Not Reportable 10/04/20 05:53 Acanthocytes (Spur) Not Reportable 10/04/20 05:53 Rouleaux Not Reportable 10/04/20 05:53 Hemoglobin C Crystals Not Reportable 10/04/20 05:53 Schistocytes Not Reportable 10/04/20 05:53 Malaria parasites Not Reportable 10/04/20 05:53 Alonso Bodies Not Reportable 10/04/20 05:53 Hem Pathologist Commnt No 10/04/20 05:53 Sodium 138 mmol/L (137-145) 10/04/20 05:53 Potassium 3.9 mmol/L (3.6-5.0) 10/04/20 05:53 Chloride 101.7 mmol/L (98-107) 10/04/20 05:53 Carbon Dioxide 26 mmol/L (22-30) 10/04/20 05:53 Anion Gap 14 mmol/L 10/04/20 05:53 BUN 9 mg/dL (9-20) 10/04/20 05:53 Creatinine 0.9 mg/dL (0.8-1.3) 10/04/20 05:53 Estimated GFR > 60 ml/min 10/04/20 05:53 BUN/Creatinine Ratio 10 % 10/04/20 05:53 Glucose 97 mg/dL (75-100) 10/04/20 05:53 POC Glucose 94 mg/dL (70-105) 10/02/20 23:29 Hemoglobin A1c 5.3 % (4-6) 10/04/20 05:53 Calcium 9.1 mg/dL (8.4-10.2) 10/04/20 05:53 Total Bilirubin < 0.20 mg/dL (0.1-1.2) 10/04/20 05:53 AST 11 units/L (5-40) 10/04/20 05:53 ALT 6 units/L (7-56) L 10/04/20 05:53 Alkaline Phosphatase 84 units/L (35-129) 10/04/20 05:53 Total Protein 6.3 g/dL (6.3-8.2) 10/04/20 05:53 Albumin 3.6 g/dL (3.9-5) L 10/04/20 05:53 Albumin/Globulin Ratio 1.3 % 10/04/20 05:53 Triglycerides 115 mg/dL (2-149) 10/04/20 05:53 Cholesterol 189 mg/dL (50-199) 10/04/20 05:53 LDL Cholesterol Direct 146 mg/dL (50-130) H 10/04/20 05:53 HDL Cholesterol 33 mg/dL (40-59) L 10/04/20 05:53 Cholesterol/HDL Ratio 5.72 % 10/04/20 05:53 TSH 2.690 mlU/mL (0.270-4.200) 10/04/20 05:53 Valproic Acid 99.9 ug/mL (50-100) 10/08/20 08:42 Core Measure Documentation - Palliative Care Palliative Care/ Comfort Measures: Not Applicable - Core Measures Any of the following diagnoses?: none (,) - VTE Discharge Requirements Deep Vein Thrombosis/Pulmonary Embolism Present on Admission: No Exam - Constitutional Vitals: Temp Pulse Resp BP Pulse Ox 98.1 F 77 16 108/65 96 10/07/20 19:51 10/07/20 19:51 10/07/20 19:51 10/07/20 19:51 10/07/20 19:51 General appearance: Present: no acute distress - Psychiatric Psychiatric: appropriate mood/affect Plan Weight Bearing Status: Weight Bear as Tolerated (,) Diet: regular Care Plan Goals: Maintain good and stable mental health. Plan of Treatment: The patient should be compliant with medications, not to use drugs and not to drink alcohol. The patient understands that if suicidal ideas, homicidal ideas, or any endangering thoughts arise, the patient should immediately seek for emergent assistance including but not limited to crisis hot line and emergency room. Follow up with outpatient Psychiatrist and PCP within 7 - 14 days of discharge. Follow up with: PRIMARY CARE,MD [Primary Care Provider] - 7 Days Prescriptions: traZODone [Desyrel] 50 mg PO QHS 30 Days #30 tablet Melatonin [Melatonin 5MG TAB] 5 mg PO QHS PRN 30 Days #30 tablet PRN Reason: Sleep Mirtazapine [Remeron 15mg TAB] 15 mg PO QHS 30 Days #30 tablet ARIPiprazole 5 mg PO QDAY 30 Days #[address] [[place]] 500 mg PO BID 30 Days #60 tablet Sertraline [Zoloft] 25 mg PO QDAY 30 Days #30 tablet
== END 2020-10-08 19:05 | disposition home or self-care (01) | DRG 881 ==
LOC: UNDOADMIN 16:15 → 3A 16:15 → 5A 22:40
PROVIDERS: ADMIT Psychiatry & Neurology Psychiatry; ATTEND Psychiatry & Neurology Psychiatry
DX: F32.9 Major depressive disorder, single episode, unspecified (principal); R45.851 Suicidal ideations; F20.0 Paranoid schizophrenia; I73.9 Peripheral vascular disease, unspecified; L30.9 Dermatitis, unspecified; Z82.49 Family history of ischemic heart disease and other diseases of the circulatory system; Z88.0 Allergy status to penicillin; Z88.2 Allergy status to sulfonamides
CPT/HCPCS: 36415; 80048; 80053; 80061; 80164; 80307; 80320; 81001; 82550; 82962; 83036; 83735; 84443; 85007; 85025; G0378; G0480; U0003